=== PATIENT | male | born 1940 | race Caucasian/White ===

== ENCOUNTER 2018-12-03 20:44 | Inpatient (IN) ==
[2018-12-03] MEDS ORDERED: SODIUM CHLORIDE 0.9% 1000ML 500 ML IV ONE (21:10)
[2018-12-03] MEDS ORDERED: DiphenhydrAMINE HCL 50 MG/ML VIAL IV STA (21:10)
[2018-12-03] MEDS ORDERED: methylPREDNISolone 60 MG in SYRINGE 1 ML IV STA (21:10)
[2018-12-03] MEDS ORDERED: PROMETHAZINE HCL 6.25 MG in SODIUM CHLORIDE 0.9% 50 ML IV STA (21:10)
[2018-12-03] MEDS ORDERED: SODIUM CHLORIDE 0.9% 500 ML IV SCH (21:15)
[2018-12-03 21:23] LABS: Basophils # (auto) 0.03 K/uL (0-0.2); Basophils % (auto) 0.4 %; Eosinophils # (auto) 0.04 K/uL (0-0.5); Eosinophils % (auto) 0.5 %; Hematocrit (blood only) 37.5 % (42-52); Hemoglobin 12.9 g/dL (14.0-18.0); Immature Granulocytes # (auto) 0.01 K/uL (0.00-0.02); Immature Granulocytes % (auto) 0.1 %; Lymphocytes # (auto) 1.29 K/uL (1.2-3.4); Lymphocytes % (auto) 15.6 %; Mean Corpuscular Hgb Conc 34.4 g/dL (32-36); Mean Corpuscular Volume 96.9 fL (80-100); Monocytes # (auto) 0.48 K/uL (0.11-0.59); Monocytes % (auto) 5.8 %; Neutrophils # (auto) 6.41 K/uL (1.4-6.5); Neutrophils % (auto) 77.6 %; Platelet Count 252 K/uL (130-400); RDW Coefficient of Variation 12.8 % (11.5-14.5); RDW Standard Deviation 44.8 fL (36.4-46.3); Red Blood Count 3.87 M/uL (4.7-6.1); White Blood Count 8.26 K/uL (4.8-10.8)
[2018-12-03] MEDS ORDERED: methylPREDNISolone 125 MG/2 ML VIAL ONE (21:24)
[2018-12-03] MEDS ORDERED: PROMETHAZINE 12.5 MG/50.5 ML NSS IV ONE (21:24)
[2018-12-03 21:39] LABS: Albumin Level 4.2 gm/dl (3.4-5.0); BUN Creatinine Ratio 17.4 (10-20); Calcium 10.1 mg/dl (8.5-10.1); Creatinine Clr Calc Pharmacy 48.5 ml/min; Est GFR (African American) 67.8; Est GFR (Non-African American) 58.5; Magnesium 1.9 mg/dl (1.8-2.4); Potassium 4.1 mmol/L (3.5-5.1)
--- NOTE | 2018-12-03 21:44 | CT Scan Report ---
CT head/brain wo con CLINICAL HISTORY: 78 years-old Male with dizzy. Acute dizziness TECHNIQUE: Multiple axial CT images of the head were obtained without contrast. A dose lowering tech nique was utilized adhering to the principles of ALARA. CT DOSE: 537.48 mGy.cm COMPARISON: Head CT 10/31/2018 FINDINGS: No acute intracranial hemorrhage, midline shift, intracranial mass, hydrocephalus, territorial ischem ia or abnormal extra-axial collection. Age-related involutional changes with ex vacuo ventricular jacques guanakito. Patchy white matter hypodensities suggest chronic microvascular ischemic disease. Cerebral vascu lar calcifications are noted. The calvarium is intact. The paranasal sinuses, mastoid air cells, and middle ear cavities are clear . IMPRESSION: No acute intracranial abnormality. The above report was generated using voice recognition software. It may contain grammatical, syntax o r spelling errors. Electronically signed by: Bruce Enriquez M.D. 12/03/2018 9:43 PM
[2018-12-03 21:50] LABS: Albumin Globulin Ratio 0.9 (0.9-2); Bilirubin,Total 0.4 mg/dl (0.2-1); Globulin 4.4 gm/dl (2.5-4.0); Total Protein 8.6 gm/dl (6.4-8.2)
--- NOTE | 2018-12-03 22:09 | Emergency Department Note ---
Entered by Shaka Cramer acting as a scribe for Dago Potter MD History of Present Illness General Chief complaint: Vertigo Stated complaint: DIZZINESS, VOMITING Time Seen by Provider: 12/03/18 21:00 Source: patient History of Present Illness Provider complaint: Dizzy Onset (ago): hour(s) (This morning) Location: head Severity: similar to prior episodes Pain Consistency: + constant Relieved By: + other (Closing eyes) Exacerbated By: + movement Associated symptoms: + nausea/vomiting; no chest pain, no headaches and no shortness of breath The patient is an 78 year old male who presents to the Emergency Room with complaints of constant dizziness that started this morning when he woke up. The patient notes that his symptoms feels similar to his last bout of vertigo. However, he did mention that in the past the dizziness would be intermittent but today it has been constant. The patient reports his symptoms become worse with movement of his head but they improve when he closes his eyes. Shortly after the onset of his dizziness, the patient became nauseated and vomited a few times. Due to this history of vertigo the patient had Meclizine at home so he took 2 pills but they did not help relieve his symptoms. The patient denies any symptoms that are localized to one side as well as any headache, falls, chest pain, or shortness of breath. Home Medications Home Medications Medication Instructions Recorded Confirmed Type esomeprazole magnesium 40 mg PO DAILY 10/31/18 12/03/18 History loratadine 10 mg PO DAILY PRN 10/31/18 12/03/18 History acetaminophen [Tylenol Arthritis 650 mg PO QAM 12/03/18 12/03/18 History Pain] ferrous sulfate [iron] 325 mg PO QAM 12/03/18 12/03/18 History guaifenesin [Mucinex] 600 mg PO QAM 12/03/18 12/03/18 History Allergies Allergy/AdvReac Type Severity Reaction Status Date / Time No Known Allergies Allergy Unverified 12/03/18 23:01 Past Med/Surg History Medical History Vertigo (Acute 03/27/14) GERD (gastroesophageal reflux disease) (Acute) Diastolic CHF, chronic (Acute) Surgical History History of vasectomy (Resolved) Family History Other No significant past medical history Social History Feels Safe at Home: Yes Smoking Status: Former smoker Review of Systems See HPI for pertinent positives & negatives. and A total of 10 systems reviewed and were otherwise negative Physical Exam Vital Signs Vital Signs - 24 hr 12/03/18 20:57 12/03/18 22:00 Temperature 36.7 C Temperature Source Oral Sepsis Recent Fever Within 48 Hours No Sepsis Action Taken by Nursing No Action Required Pulse Rate 75 Pulse Rate [Apical] 81 Respiratory Rate 18 18 Respiratory Effort / Characteristics Non-Labored Spontaneous Respiratory Depth Normal Blood Pressure 165/83 H Blood Pressure [Left Arm] 162/90 H Blood Pressure Mean 110 Blood Pressure Mean [Left Arm] 114 Pulse Oximetry 96 96 Oxygen Delivery Method Room Air Room Air GENERAL: Patient is in no acute distress. HEENT: No acute trauma, normocephalic atraumatic, mucous membranes moist, no nasal congestion, no scleral icterus. Horizontal nystagmus noted especially when looking left. NECK: No stridor, no adenopathy, no meningismus, trachea is midline. LUNGS: Clear to auscultation bilaterally, no wheeze, no rhonchi, breath sounds equal. HEART: Very subtle systolic murmur noted. Regular rate and rhythm. ABDOMEN: Soft, nontender, bowel sounds positive, no hernias, no peritonitis. EXTREMITIES: No cyanosis or edema, full range of motion of all the joints without pain or difficulty, no signs for acute trauma. NEUROLOGIC: Oriented x 3, no acute motor or sensory deficits, no focal weakness. No cerebellar deficits, no pronator drift, no speech slur. Some extremity tremor noted. SKIN: No rash, no jaundice, no diaphoresis. Course 2101: Past medical records reviewed. The patient was evaluated in room A11B, and a complete history and physical examination were performed. 5: I reevaluated the patient and he is still having vertigo, however it is not as bad as before. 2320: The patient tried an ambulatory trial and failed. He will be hospitalized for further evaluation. 2338: I spoke to Dr. Bernstein - [facility] Hospitalist about the patient's case. He will be accepting the patient for further evaluation. Consultations Consultation #1: I spoke to Dr. Bernstein - [facility] Hospitalist about the rahel ent's case. He will be accepting the patient for further evaluation. Time: 23:38 Administered Medications Discontinued Medications Diphenhydramine HCl (Benadryl) 25 mg IV NOW STA Stop: 12/03/18 21:11 Last Admin: 12/03/18 21:37 Dose: 25 mg Documented by: [id number] Methylprednisolone 60 mg/ (Syringe) 1.96 mls @ 1.5 mls/min IV NOW STA Stop: 12/03/18 21:11 Last Admin: 12/03/18 21:37 Dose: 1.5 mls/min Documented by: [id number] Promethazine HCl 6.25 mg/ (Sodium Chloride) 50.25 mls @ 201 mls/hr IV NOW STA Stop: 12/03/18 21:24 Last Infusion: 12/03/18 22:41 Dose: 0 mls/hr Documented by: [id number] Admin: 12/03/18 21:37 Dose: 201 mls/hr Documented by: [id number] Sodium Chloride (Nss) 500 mls @ 999 mls/hr IV .Q31M NORBERTO Stop: 12/03/18 21:45 Last Infusion: 12/03/18 22:41 Dose: 0 mls/hr Documented by: [id number] Admin: 12/03/18 21:37 Dose: 999 mls/hr Documented by: [id number] Sodium Chloride (Nss 1000ml) 500 mls @ 999 mls/hr IV .Q31M ONE Stop: 12/03/18 21:40 Last Infusion: 12/03/18 22:41 Dose: 0 mls/hr Documented by: [id number] Admin: 12/03/18 21:37 Dose: 999 mls/hr Documented by: [id number] Lorazepam (Ativan) 0.5 mg in 1 mls @ 1 mls/min IV NOW STA Stop: 12/03/18 22:19 Last Admin: 12/03/18 22:25 Dose: 1 mls/min Documented by: [id number] Meclizine HCl (Antivert) 25 mg PO NOW STA Stop: 12/03/18 22:19 Last Admin: 12/03/18 22:25 Dose: 25 mg Documented by: [id number] Methylprednisolone (Solumedrol) Confirm Administered Dose 125 mg .ROUTE .STK-MED ONE Stop: 12/03/18 21:25 Last Admin: 12/03/18 21:35 Dose: Not Given Documented by: [id number] Promethazine HCl (Phenergan) Confirm Administered Dose 12.5 mg IV .STK-MED ONE Stop: 12/03/18 21:25 Last Admin: 12/03/18 21:35 Dose: Not Given Documented by: [id number] Medical Decision Making Differential Diagnosis Differential Diagnosis includes: Vertigo, stroke, electrolyte imbalance, dehydration, anemia, UTI, and dysrhythmia, amongst others. Medical Records Attestation: I reviewed the patient's medical records. Home Medications Current Medication List: was personally reviewed by me Laboratory Data Attestation: I reviewed the patient's lab results. Result diagrams: 12/03/18 21:14 12/03/18 21:14 Lab Results 12/03/18 12/03/18 12/03/18 Range/Units 21:14 21:14 22:45 WBC 8.26 (4.8-10.8) K/uL RBC 3.87 L (4.7-6.1) M/uL Hgb 12.9 L (14.0-18.0) g/dL Hct 37.5 L (42-52) % MCV 96.9 (80-100) fL MCH 33.3 (25-34) pg MCHC 34.4 (32-36) g/dL RDW Std Deviation 44.8 (36.4-46.3) fL RDW Coeff of Ally 12.8 (11.5-14.5) % Plt Count 252 (130-400) K/uL MPV 10.0 (7.4-10.4) fL Immature Gran % (Auto) 0.1 % Neut % (Auto) 77.6 % Lymph % (Auto) 15.6 % [place] % (Auto) 5.8 % Eos % (Auto) 0.5 % Baso % (Auto) 0.4 % Immature Gran # (Auto) 0.01 (0.00-0.02) K/uL Neut # (Auto) 6.41 (1.4-6.5) K/uL Lymph # (Auto) 1.29 (1.2-3.4) K/uL [place] # (Auto) 0.48 (0.11-0.59) K/uL Eos # (Auto) 0.04 (0-0.5) K/uL Baso # (Auto) 0.03 (0-0.2) K/uL Sodium 137 (136-145) mmol/L Potassium 4.1 (3.5-5.1) mmol/L Chloride 106 (98-107) mmol/L Carbon Dioxide 26 (21-32) mmol/L Anion Gap 6.0 (3-11) BUN 20 H (7-18) mg/dl Creatinine 1.17 (0.6-1.4) mg/dl Est Cr Clr Drug Dosing 48.5 ml/min Est GFR ( Amer) 67.8 Est GFR (Non-Af Amer) 58.5 BUN/Creatinine Ratio 17.4 (10-20) Glucose 113 H (70-99) mg/dl Calcium 10.1 (8.5-10.1) mg/dl Magnesium 1.9 (1.8-2.4) mg/dl Total Bilirubin 0.4 (0.2-1) mg/dl AST 22 (15-37) U/L ALT 25 (12-78) U/L Alkaline Phosphatase 85 (45-117) U/L Total Protein 8.6 H (6.4-8.2) gm/dl Albumin 4.2 (3.4-5.0) gm/dl Globulin 4.4 H (2.5-4.0) gm/dl Albumin/Globulin Ratio 0.9 (0.9-2) TSH 1.570 (0.300-4.500) uIu/ml Urine Color Yellow Urine Appearance Clear (Clear) Urine pH 5.5 (4.5-7.5) Ur Specific [place] 1.012 (1.000-1.030) Urine Protein 2+ H (Negative) Urine Glucose (UA) Negative (Negative) Urine Ketones Negative (Negative) Urine Blood Negative (Negative) Urine Nitrite Negative (Negative) Urine Bilirubin Negative (Negative) Urine Urobilinogen Negative (Negative) Ur Leukocyte Esterase Negative (Negative) Urine WBC (Auto) 0 (0-5) /hpf Urine RBC (Auto) 0-4 (0-4) /hpf U Hyaline Cast (Auto) 1-5 (0-5) /lpf U Epithel Cells (Auto) 10-20 H (0-5) /lpf Urine Bacteria (Auto) Negative (Negative) Imaging Data Radiologist's Impression: Radiology results as stated below per my review and the radiologist's interpretation: CT head/brain wo con CLINICAL HISTORY: 78 years-old Male with dizzy. Acute dizziness TECHNIQUE: Multiple axial CT images of the head were obtained without contrast. A dose lowering technique was utilized adhering to the principles of ALARA. CT DOSE: 537.48 mGy.cm COMPARISON: Head CT 10/31/2018 FINDINGS: No acute intracranial hemorrhage, midline shift, intracranial mass, hydrocephalus, territorial ischemia or abnormal extra-axial collection. Age- related involutional changes with ex vacuo ventricular megaly. Patchy white matter hypodensities suggest chronic microvascular ischemic disease. Cerebral vascular calcifications are noted. The calvarium is intact. The paranasal sinuses, mastoid air cells, and middle ear cavities are clear. IMPRESSION: No acute intracranial abnormality. The above report was generated using voice recognition software. It may contain grammatical, syntax or spelling errors. Electronically signed by: Bruce Enriquez M.D. 12/03/2018 9:43 PM ECG Data Attestation: I personally reviewed and interpreted this ECG as follows: Indication: other (Dizziness) Rate (beats per minute): 75 Rhythm: sinus rhythm Findings: + other (LVH noted), + PVC and + ST elevation (Subtle in the anterior leads) Comparison ECG Date: from (10/31/18) Change: no significant change Blood Pressure Blood Pressure Findings: Elevated blood pressure Blood Pressure Disposition: further management by hospitalist [facility] Narrative There is no leukocytosis. The patient does have a mild anemia, this is baseline looking back at previous testing. No significant electrolyte abnormality or kidney failure. No elevation to the liver enzymes. The patient appeared to be in a euthyroid state. Urinalysis does not show infection. Brain CT shows no acute bleed or mass-effect. EKG shows a sinus rhythm, no acute ischemia. On exam, the patient did have some horizontal nystagmus especially looking left. There were no focal neurologic deficits, no speech slur. The patient received IV Benadryl, IV Ativan, oral meclizine, IV Solu-Medrol, IV Phenergan and IV saline. He felt somewhat better but still dizzy. The patient was helped up, he could not ambulate on his own. He required 2 nurses to keep him steady. He was not safe for discharge. The patient presents with strokelike symptoms. I suspect he has vertigo as he has gone through this problem before. He does have some nystagmus which would indicate potential vertigo. He is not stable for discharge. I spoke to the sample case porter. The on-call hospitalist was consulted. Impression & Plan Stroke-like symptom, Dizziness, Weakness, Vomiting Discharge Plan Visit Data Chief Complaint: Vertigo Stated Complaint: DIZZINESS, VOMITING ED Provider: Dago Potter Discharge Problem: Stroke-like symptom, Dizziness, Weakness, Vomiting Patient Disposition: Being Evaluated by Hospitalist Forms Stand Alone Forms: My [facility] Prescriptions Prescriptions: No Action esomeprazole magnesium 40 mg capsule,delayed release(DR/EC) 40 mg PO DAILY RF: 0 loratadine 10 mg tablet 10 mg PO DAILY PRN (Reason: Allergy Symptoms) RF: 0 acetaminophen [Tylenol Arthritis Pain] 650 mg Tablet Extended Release 650 mg PO QAM RF: 0 ferrous sulfate [iron] 325 mg (65 mg iron) Tablet 325 mg PO QAM RF: 0 guaifenesin [Mucinex] 600 mg Tablet Extended Release 12hr 600 mg PO QAM RF: 0 Referrals Referrals: Jason aBy PA-C [Primary Care Provider] - Discharge Problem: Vomiting Qualifiers: Vomiting type: unspecified Vomiting Intractability: non-intractable Nausea pr esence: with nausea Qualified Code(s): R11.2 - Nausea with vomiting, unspecified The scribe's documentation has been prepared under my direction and personally reviewed by me in its entirety. I confirm that the note above accurately reflects all work, treatment, procedures, and medical decision making performed by me.
[2018-12-03] MEDS ORDERED: LORazepam 0.5 MG/1 ML VIAL IV STA (22:18)
[2018-12-03] MEDS ORDERED: MECLIZINE HCL 25 MG TAB PO STA (22:18)
[2018-12-03 22:57] LABS: Appearance Urine Clear (Clear); Bacteria Urine Automated Negative (Negative); Bilirubin Urine Negative (Negative); Blood Urine Negative (Negative); Color Urine Yellow; Glucose Urine UA Negative (Negative); Ketones Urine Negative (Negative); Leukocyte Esterase Urine Negative (Negative); Nitrite Urine Negative (Negative); Protein Urine 2+ (Negative); RBC Urine Automated 0-4 /hpf (0-4); Specific Gravity Urine 1.012 (1.000-1.030); Urobilinogen Urine Negative (Negative); WBC Urine Automated 0 /hpf (0-5); pH Urine 5.5 (4.5-7.5)
[2018-12-04] MEDS ORDERED: ACETAMINOPHEN 325 MG TAB PO PRN (02:34)
[2018-12-04] MEDS ORDERED: ALUMINUM/MAGNESIUM SUSP 30 ML UDC PO PRN (02:34)
[2018-12-04] MEDS ORDERED: ONDANSETRON INJ 2 MG/ML 2 ML VIAL IV PRN (02:34)
[2018-12-04] MEDS ORDERED: POLYETHYLENE (MIRALAX) 17 GM PACK PO PRN (02:34)
[2018-12-04] MEDS ORDERED: PHARMACIST DISCHARGE MED REC CONSULT PRN (02:34)
[2018-12-04] MEDS ORDERED: MAGNESIUM HYDROXIDE SUSP 30 ML UDC PO PRN (02:34)
[2018-12-04 03:04] LABS: Basophils # (auto) 0.02 K/uL (0-0.2); Basophils % (auto) 0.2 %; Hematocrit (blood only) 37.6 % (42-52); Hemoglobin 12.9 g/dL (14.0-18.0); Immature Granulocytes # (auto) 0.01 K/uL (0.00-0.02); Immature Granulocytes % (auto) 0.1 %; Lymphocytes # (auto) 0.84 K/uL (1.2-3.4); Lymphocytes % (auto) 9.2 %; Mean Corpuscular Hgb Conc 34.3 g/dL (32-36); Mean Corpuscular Volume 96.9 fL (80-100); Mean Platelet Volume 10.2 fL (7.4-10.4); Monocytes # (auto) 0.03 K/uL (0.11-0.59); Monocytes % (auto) 0.3 %; Neutrophils # (auto) 8.27 K/uL (1.4-6.5); Neutrophils % (auto) 90.2 %; Platelet Count 272 K/uL (130-400); RDW Coefficient of Variation 12.8 % (11.5-14.5); Red Blood Count 3.88 M/uL (4.7-6.1); White Blood Count 9.17 K/uL (4.8-10.8)
[2018-12-04 03:14] LABS: Prothrombin Time 10.7 Seconds (9.0-12.0)
[2018-12-04 03:23] LABS: BUN Creatinine Ratio 18.6 (10-20); Calcium 9.8 mg/dl (8.5-10.1); Creatinine Clr Calc Pharmacy 52.9 ml/min; Est GFR (African American) 73.1; Est GFR (Non-African American) 63.1; Potassium 4.1 mmol/L (3.5-5.1)
--- NOTE | 2018-12-04 05:43 | History & Physical Report ---
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 CTA head negative today. Order MRI of brain. Order complete echocardiogram. Monitor on telemetry for possible arrhythmia. Treat symptomatically with Zofran, famotidine and acetaminophen. Start aspirin 81 mg daily. Start atorvastatin 40 mg daily. Check a fasting lipid panel and hemoglobin A1c, and follow serial troponins. Consult neurology. Present on Admission?: Yes (2) Stroke-like symptom: See above Present on Admission?: Yes (3) Dizziness: See above Present on Admission?: Yes (4) Vomiting: See above Present on Admission?: Yes (5) Vertigo: See above Present on Admission?: Yes (6) Weakness: See above Present on Admission?: Yes (7) Diplopia: See above Present on Admission?: Yes (8) GERD (gastroesophageal reflux disease): Change Nexium to pantoprazole 40 mg daily Present on Admission?: Yes History of Present Illness Chief Complaint: The patient presented to the emergency department with complaint of acute onset after awakening this morning of severe room spinning when he was sitting upright, horizontal diplopia when he was looking to the left, and periodic intractable vomiting due to spinning severity. Primary Care Provider: Jason Bay PA-C The patient is a 78-year-old male with a past medical history including GERD, chronic diastolic CHF, allergy, iron deficiency and episodic vertigo, who presented to the emergency department with the above symptoms. His symptoms are persistent 12 hours later during evaluation in the ED, but have improved somewhat. He has not had any focal deficits in arms or legs. He reports that in the past when he has had these symptoms, they have resolved in minutes, and have not been accompanied by diplopia. He reports no different activities in the preceding days, and denies any recent travels or sick exposures. He was seen in the emergency department on 10/31/2018 due to similar symptoms, and had a CTA of the head and neck which showed moderate narrowing of the right vertebral artery. Allergies Allergy/AdvReac Type Severity Reaction Status Date / Time No Known Allergies Allergy Unverified 12/03/18 23:01 Home Medications Home Medications Medication Instructions Recorded Confirmed Type esomeprazole magnesium 40 mg PO DAILY 10/31/18 12/03/18 History loratadine 10 mg PO DAILY PRN 10/31/18 12/03/18 History acetaminophen [Tylenol Arthritis 650 mg PO QAM 12/03/18 12/03/18 History Pain] ferrous sulfate [iron] 325 mg PO QAM 12/03/18 12/03/18 History guaifenesin [Mucinex] 600 mg PO QAM 12/03/18 12/03/18 History Past Med/Surg History Medical History Vertigo (Acute 03/27/14) GERD (gastroesophageal reflux disease) (Acute) Diastolic CHF, chronic (Acute) Surgical History History of vasectomy (Resolved) Family History Other No significant past medical history Social History Preferred Language: Slovak Communication Ability: Effective Chronic Disease Manager Required: No Beliefs That Will Affect Care: None Current Living Situation: Spouse Other Information That Helps Us Care for You: No Feels Safe at Home: Yes Safety Concerns: Feels Safe At This Time Smoking Status: Former smoker Hx Alcohol Use: No Hx Substance Use: No Review of Systems Review of Systems: The patient denies chest pain, palpitations, shortness of breath, dyspnea on exertion, cough, lower extremity swelling, sore throat, fevers, chills, sweats, diarrhea , constipation, abdominal pain, pelvic pain, blood in urine or stool, dysuria, urinary frequency or urgency, memory loss, loss of consciousness, rash, abnormal bruising or bleeding, focal or generalized weakness, numbness or tingling in arms or legs, generalized arthralgias or myalgias, back or neck pain, or night sweats. The review of systems is otherwise negative other than for that already noted above, and at least 10 systems have been reviewed. Physical Exam Physical Exam: The patient is awake, alert and oriented 3, well developed and well nourished, normocephalic and atraumatic, lying in bed and in no acute distress. HEENT--PERRL, EOMI, mucous membranes and oropharynx dry. Neck--supple. No JVD. No bruits. Thyroid normal, trachea midline, no adenopathy. Heart--normal S1 and S2. No murmurs, rubs or gallops. Lungs--clear bilaterally, no respiratory distress, no accessory muscle use. Abdomen--normal bowel sounds and soft. Nontender. Nondistended, no hernias or masses, no organomegaly. Extremities--no cyanosis or clubbing. No edema. There are good distal pulses b/l. Dermatologic--normal skin turgor, normal color, no abnormal lymph nodes, no rash. Neurologic--cranial nerves II through XII grossly intact. Rheumatologic--normal range of motion. Psychiatric--normal affect. Results & Data Vital Signs (Past 12 Hours) Vital Signs Temp Pulse Pulse Resp BP BP Pulse Ox 12/04/18 02:25 98.1 F 86 20 182/98 H 96 12/04/18 02:06 83 19 162/91 H 95 12/04/18 01:27 73 19 153/108 H 94 12/03/18 22:00 81 18 162/90 H 96 12/03/18 20:57 98.1 F 75 18 165/83 H 96 Laboratory Results Laboratory Results WBC 9.17 K/uL (4.8-10.8) 12/04/18 02:41 RBC 3.88 M/uL (4.7-6.1) L 12/04/18 02:41 Hgb 12.9 g/dL (14.0-18.0) L 12/04/18 02:41 Hct 37.6 % (42-52) L 12/04/18 02:41 MCV 96.9 fL (80-100) 12/04/18 02:41 MCH 33.2 pg (25-34) 12/04/18 02:41 MCHC 34.3 g/dL (32-36) 12/04/18 02:41 RDW Std Deviation 45.0 fL (36.4-46.3) 12/04/18 02:41 RDW Coeff of Ally 12.8 % (11.5-14.5) 12/04/18 02:41 Plt Count 272 K/uL (130-400) 12/04/18 02:41 MPV 10.2 fL (7.4-10.4) 12/04/18 02:41 Immature Gran % (Auto) 0.1 % 12/04/18 02:41 Neut % (Auto) 90.2 % 12/04/18 02:41 Lymph % (Auto) 9.2 % 12/04/18 02:41 [place] % (Auto) 0.3 % 12/04/18 02:41 Eos % (Auto) 0.0 % 12/04/18 02:41 Baso % (Auto) 0.2 % 12/04/18 02:41 Immature Gran # (Auto) 0.01 K/uL (0.00-0.02) 12/04/18 02:41 Neut # (Auto) 8.27 K/uL (1.4-6.5) H 12/04/18 02:41 Lymph # (Auto) 0.84 K/uL (1.2-3.4) L 12/04/18 02:41 [place] # (Auto) 0.03 K/uL (0.11-0.59) L 12/04/18 02:41 Eos # (Auto) 0.00 K/uL (0-0.5) 12/04/18 02:41 Baso # (Auto) 0.02 K/uL (0-0.2) 12/04/18 02:41 PT 10.7 Seconds (9.0-12.0) 12/04/18 02:41 INR 1.0 (0.9-1.1) 12/04/18 02:41 Sodium 140 mmol/L (136-145) 12/04/18 02:41 Potassium 4.1 mmol/L (3.5-5.1) 12/04/18 02:41 Chloride 108 mmol/L (98-107) H 12/04/18 02:41 Carbon Dioxide 23 mmol/L (21-32) 12/04/18 02:41 Anion Gap 9.0 (3-11) 12/04/18 02:41 BUN 21 mg/dl (7-18) H 12/04/18 02:41 Creatinine 1.10 mg/dl (0.6-1.4) 12/04/18 02:41 Est Cr Clr Drug Dosing 52.9 ml/min 12/04/18 02:41 Est GFR ( Amer) 73.1 12/04/18 02:41 Est GFR (Non-Af Amer) 63.1 12/04/18 02:41 BUN/Creatinine Ratio 18.6 (10-20) 12/04/18 02:41 Glucose 132 mg/dl (70-99) H 12/04/18 02:41 Calcium 9.8 mg/dl (8.5-10.1) 12/04/18 02:41 Magnesium 1.9 mg/dl (1.8-2.4) 12/03/18 21:14 Total Bilirubin 0.4 mg/dl (0.2-1) 12/03/18 21:14 AST 22 U/L (15-37) 12/03/18 21:14 ALT 25 U/L (12-78) 12/03/18 21:14 Alkaline Phosphatase 85 U/L (45-117) 12/03/18 21:14 Troponin I < 0.015 ng/ml (0-0.045) 12/04/18 02:41 Total Protein 8.6 gm/dl (6.4-8.2) H 12/03/18 21:14 Albumin 4.2 gm/dl (3.4-5.0) 12/03/18 21:14 Globulin 4.4 gm/dl (2.5-4.0) H 12/03/18 21:14 Albumin/Globulin Ratio 0.9 (0.9-2) 12/03/18 21:14 Triglycerides 82 mg/dl (0-150) 12/04/18 02:41 Cholesterol 196 mg/dl (0-200) 12/04/18 02:41 LDL Cholesterol, Calc 135 mg/dl 12/04/18 02:41 VLDL Cholesterol, Calc 16 mg/dl 12/04/18 02:41 HDL Cholesterol 45 mg/dl 12/04/18 02:41 Cholesterol/HDL Ratio 4 12/04/18 02:41 TSH 1.570 uIu/ml (0.300-4.500) 12/03/18 21:14 Urine Color Yellow 12/03/18 22:45 Urine Appearance Clear (Clear) 12/03/18 22:45 Urine pH 5.5 (4.5-7.5) 12/03/18 22:45 Ur Specific [place] 1.012 (1.000-1.030) 12/03/18 22:45 Urine Protein 2+ (Negative) H 12/03/18 22:45 Urine Glucose (UA) Negative (Negative) 12/03/18 22:45 Urine Ketones Negative (Negative) 12/03/18 22:45 Urine Blood Negative (Negative) 12/03/18 22:45 Urine Nitrite Negative (Negative) 12/03/18 22:45 Urine Bilirubin Negative (Negative) 12/03/18 22:45 Urine Urobilinogen Negative (Negative) 12/03/18 22:45 Ur Leukocyte Esterase Negative (Negative) 12/03/18 22:45 Urine WBC (Auto) 0 /hpf (0-5) 12/03/18 22:45 Urine RBC (Auto) 0-4 /hpf (0-4) 12/03/18 22:45 U Hyaline Cast (Auto) 1-5 /lpf (0-5) 12/03/18 22:45 U Epithel Cells (Auto) 10-20 /lpf (0-5) H 12/03/18 22:45 Urine Bacteria (Auto) Negative (Negative) 12/03/18 22:45 Diagnostic Findings [place], [place] [phone] CT Scan Report Patient: MONIK THORPE Date: 12/03/18 MR#: [id number]: [address] [facility] Acct ID:[id number]: Date: 1940[facility] Zip: [place] [address] Age: 78Location: ED Sex: M Room/Bed: Att Phy: Diagnosis: DIZZINESS, VOMITING Alicia Phy: Jason Bay-CService Date: 12/03/18 Fam Phy: Interpreting Phy: Geovany Enriquez Admit Phy: Ordering Phy: Dago Potter M.D. cc: ~ CT head/brain wo con CLINICAL HISTORY: 78 years-old Male with dizzy. Acute dizziness TECHNIQUE: Multiple axial CT images of the head were obtained without contrast. A dose lowering technique was utilized adhering to the principles of ALARA. CT DOSE: 537.48 mGy.cm COMPARISON: Head CT 10/31/2018 FINDINGS: No acute intracranial hemorrhage, midline shift, intracranial mass, hy drocephalus, territorial ischemia or abnormal extra-axial collection. Age- related involutional changes with ex vacuo ventricular megaly. Patchy white matter hypodensities suggest chronic microvascular ischemic disease. Cerebral vascular calcifications are noted. The calvarium is intact. The paranasal sinuses, mastoid air cells, and middle ear cavities are clear. IMPRESSION: No acute intracranial abnormality. The above report was generated using voice recognition software. It may contain grammatical, syntax or spelling errors. Electronically signed by: Bruce Enriquez M.D. 12/03/2018 9:43 PM Dictated: 12/03/182139 Transcribed: 12/03/182139 [place], [place] [phone] CT Scan Report Patient: MONIK THORPE Date: 10/31/18 MR#: [id number]: [address] [facility] Acct ID:[id number]: Date: 1940City Zip: [place] [address] Age: 78Location: ED Sex: M Room/Bed: Att Phy: Diagnosis: SYNCOPE Alicia Phy: Jason Bay-CService Date: 10/31/18 Fam Phy: Jason Bay-CInterpreting Phy: Chema Bruno MD Admit Phy: Ordering Phy: Ruben Lin M.D. cc: ~ HEAD & NECK CTA HISTORY: syncope TECHNIQUE: Multiaxial CT images of the head were performed following the intravenous administration of contrast to evaluate the major cerebral vessels. Multiaxial CT images of the neck were also performed following the intravenous administration of contrast to evaluate the major cervical vessels. Maximum intensity projection images were also obtained. A dose lowering technique was utilized adhering to the principles of ALARA. COMPARISON: Head and neck MRA 03/27/2014. FINDINGS: There is no mass, hematoma, midline shift, or acute infarct. Visualized intracranial internal carotid arteries, distal vertebral arteries, and basilar artery are widely patent. There is no significant stenosis, occlusion, or aneurysm seen within the bilateral ACAs, MCAs, or form drafter. The major dural venous sinuses are widely patent. The aortic arch and proximal great vessels are widely patent. There is no significant stenosis, occlusion, or dissection identified within the bilateral common carotid and internal carotid arteries. Moderate focal narrowing at the origin of the right vertebral artery. The left vertebral artery is widely patent. Mild atherosclerotic plaque within the right carotid bulb. No evidence for vertebral artery dissection. IMPRESSION: 1. No significant stenosis, occlusion, or aneurysm within the [place]. 2. No significant stenosis, occlusion, or dissection identified within the carotid or left vertebral arteries. 3. Moderate focal narrowing at the origin of the right vertebral artery. Electronically signed by: Chema Bruno M.D. 10/31/2018 9:39 PM Dictated: 10/31/182131 Transcribed: 10/31/182131 Code Status & VTE Plan Code Status Full code VTE Prophylaxis Plan VTE Prophylaxis will be ordered: Yes PG Care Time/CCT Total # of Minutes Spent Total Time Spent with Patient: Total time spent is greater than 50% in coordination of care (as documented) at patient's floor/unit and/or counseling patient: (1) Vomiting Nausea presence: with nausea Vomiting Intractability: non-intractable Vomiting type: unspecified Qualified Code(s): R11.2 - Nausea with vomiting, unspecified
--- NOTE | 2018-12-04 08:10 | Magnetic Resonance Report ---
MR brain wo con HISTORY: 78 years-old Male diplopia, stroke-like symptoms, dizziness acute dizziness with strokelike symptoms and double vision COMPARISON: Head CT 12/03/2018, brain MRI 03/27/2014 TECHNIQUE: Multiplanar multisequence MRI of the brain was obtained without the use of IV contrast. FINDINGS: Developmental Training Counselor localizer images demonstrate no gross extracranial abnormality. No restricted diffusion to sugg est acute or subacute infarction. Midline structures including the corpus callosum, brainstem, optic chiasm, pituitary and pineal glands appear unremarkable on the sagittal T1 series. No cerebellar tons illar herniation. Degenerative changes of the cervical spine. Age-related involutional changes with ex vacuo ventriculomegaly. Moderate T2/FLAIR white matter hyper intensities suggest chronic microvascular ischemic disease. No acute intracranial hemorrhage, midline shift, abnormal extra axial collection, hydrocephalus or intracranial mass. Major flow voids at the level of the skull base appear patent. Mild mucosal thickening of the ethmoid and maxillary sinuses. Prior bilateral cataract repair. Skull and soft tissues are within normal limits. IMPRESSION: 1. No acute intracranial abnormality, specifically no acute or subacute infarction. 2. Age-related involutional changes with ex vacuo ventriculomegaly. 3. Suggestion of moderate chronic microvascular ischemic changes. The above report was generated using voice recognition software. It may contain grammatical, syntax o r spelling errors. Electronically signed by: Bruce Enriquez M.D. 12/04/2018 8:09 AM
[2018-12-04] MEDS: PANTOprazole 40 MG TAB PO SCH (08:15)
[2018-12-04] MEDS: FERROUS SULFATE 325 MG TAB PO SCH (08:15)
[2018-12-04] MEDS: ACETAMINOPHEN 325 MG TAB PO SCH (08:15)
[2018-12-04] MEDS: guaiFENesin 600 MG TABCR PO SCH (08:15)
[2018-12-04] MEDS ORDERED: ATORVASTATIN 40 MG TAB PO SCH (09:00)
[2018-12-04] MEDS ORDERED: ASPIRIN 81 MG ECTAB PO SCH (09:00)
--- NOTE | 2018-12-04 10:28 | Neurology Consultation ---
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 He is probably experiencing a relapse of this condition. There is no evidence for acute or subacute stroke on his recently completed brain MRI. The recently identified moderate stenosis of the right vertebral artery is not likely clinically significant. He may continue with meclizine as needed. Physical therapy/Shaina maneuvers would also likely be helpful. I see that daily low-dose aspirin and atorvastatin have been started. I do not object to either of these medications as his imaging does reveal evidence of chronic small vessel ischemic disease as well as a moderate stenosis of the right vertebral artery as above. Case discussed with Dr. Guillory, attending hospitalist. No further immediate recommendations. History of Present Illness Reason for Consultation: Strokelike symptoms Requesting Physician: Hesham Bernstein Attending Physician: Ortiz Guillory MD History of Present Illness The patient is an 78-year-old male with a chief complaint of vertigo, spinning sensation, that he noted upon awakening yesterday morning. The perception increases with movement and is associated with nausea as well as a few episodes of vomiting. His symptoms were persistent and he continues to display difficulty with ambulation during his assessment in the emergency department and he was admitted for further evaluation for possible vertebrobasilar insufficiency. Past medical history is notable for benign positional paroxysmal vertigo for which she has a prescription for meclizine. The patient does admit that his current symptoms are very similar to his BPPV but had been more persistent and associated with more significant ambulatory dysfunction which is why he sought assessment in the emergency department. He denies any hearing loss, tinnitus, or ear fullness. He denies any diplopia, dysarthria, focal weakness, sensory loss, or headache. He reports that his symptoms are significantly improved this morning although he continues to have a vague sense of dizziness, perhaps slight vertigo, when lying completely flat in bed, more so with turning his head to the left. He also continues to notice a slight tendency to list to the right with ambulation. Additional details as below. Allergies Allergy/AdvReac Type Severity Reaction Status Date / Time No Known Allergies Allergy Unverified 12/03/18 23:01 Home Medications Home Medications Medication Instructions Recorded Confirmed Type esomeprazole magnesium 40 mg PO DAILY 10/31/18 12/03/18 History loratadine 10 mg PO DAILY PRN 10/31/18 12/03/18 History acetaminophen [Tylenol Arthritis 650 mg PO QAM 12/03/18 12/03/18 History Pain] ferrous sulfate [iron] 325 mg PO QAM 12/03/18 12/03/18 History guaifenesin [Mucinex] 600 mg PO QAM 12/03/18 12/03/18 History Patient History Medical History Vertigo (Acute 03/27/14) GERD (gastroesophageal reflux disease) (Acute) Diastolic CHF, chronic (Acute) Surgical History History of vasectomy (Resolved) Family History Other No significant past medical history Social History Preferred Language: Albanian Communication Ability: Effective Radiologic Therapist Required: No Beliefs That Will Affect Care: None marital status: Current Living Situation: Spouse Other Information That Helps Us Care for You: No Feels Safe at Home: Yes Safety Concerns: Feels Safe At This Time Smoking Status: Former smoker Hx Alcohol Use: No Hx Substance Use: No Review of Systems Constitutional: no fever and no chills Eyes: no blind spots and no diplopia Ear, Nose, Mouth, Throat: + hearing loss (Chronic bilateral hearing loss.); no tinnitus Respiratory: no cough and no dyspnea Cardiovascular: no chest pain and no palpitations Gastrointestinal: as per Subjective / HPI, + nausea and + vomiting Genitourinary: no dysuria and no urinary incontinence Musculoskeletal: no neck pain and no myalgia Integumentary: no rash and no lesions Neurologic: as per Subjective / HPI, + unsteadiness and + dizziness; no localized weakness, no loss of sensation and no headache(s) Psychiatric: no depression and no anxiety Hematologic / Lymphatic: no easy bleeding and no easy bruising Physical Exam Physical Exam: The patient is a well-developed, well-nourished elderly male. He is alert and fully oriented. Recent and remote memory intact. Attention and concentration normal. Patient exhibits a normal spontaneous speech pattern as well as an age-appropriate fund of knowledge. Visual lopez full to confrontation. Visual acuity normal. Pupils equal round reactive to light and accommodation. Eye movements normal. There are a few beats of gaze evoked nystagmus to the left. Facial sensation intact. There is no facial droop or weakness. Hearing diminished to finger rub bilaterally. Palate elevates to midline. Shoulder shrug intact. Tongue protrudes to midline. Sensation intact to all modalities in all 4 limbs. Deep tendon reflexes intact and symmetrical. Plantar responses downgoing bilaterally. There is no dysdiadochokinesia or dysmetria [id number] or [id number] bilaterally. Ophthalmoscopic examination reveals normal-appearing optic disks and posterior segments. No papilledema or hemorrhages. Carotid pulses normal bilaterally, no bruits to auscultation. Gait is somewhat unsteady appearing with a slight tendency to list to the right. Patient exhibits normal muscle strength and tone for all 4 limbs proximally and distally. No atrophy. No abnormal movements. [place]- Hallpike positive with head turn to the left. Results & Data Vital Signs (Past 12 Hours) Vital Signs Temp Pulse Pulse Resp BP BP Pulse Ox 12/04/18 07:36 36.8 C 87 16 168/97 H 93 12/04/18 07:09 36.8 C 97 H 18 165/95 H 94 12/04/18 02:25 36.7 C 86 20 182/98 H 96 12/04/18 02:06 83 19 162/91 H 95 12/04/18 01:27 73 19 153/108 H 94 Laboratory Results WBC 9.17, hemoglobin 12.9, hematocrit 37.6, platelet count 272, sodium 140, potassium 4.1, BUN 21, creatinine 1.10, glucose 132, calcium 9.8, magnesium 1.9, transaminases normal, troponin less than 0.015, triglycerides 82, cholesterol 196, LDL 135, VLDL 16, HDL 45, TSH 1.[address] of the head completed yesterday was negative for hemorrhage or acute process. There is generalized atrophy. I reviewed the images as well as radiology interpretation of this test. An MRI of the brain completed today was negative for acute or subacute stroke. There is age-related generalized atrophy with associated ex vacuo ventriculomegaly. There is chronic microvascular ischemic change. I reviewed the images as well as radiology interpretation of this test. CT angiography of the head and neck completed October 31, 2018 in the context of an isolated syncopal episode revealed moderate focal narrowing at the origin of the right vertebral artery and was otherwise unremarkable.
[2018-12-04] MEDS ORDERED: LORATADINE 10 MG TAB PO PRN (13:50)
--- NOTE | 2018-12-04 14:46 | History & Physical Bridge Note ---
Date of Service December 04, 2018 History & Physical Bridge Note 78-year-old male with a history of BPPV who presents with worsening of BPPV on the left side. Initially concern for stroke; however, MRI brain reveals no stroke, and neurology also believes this is not a CVA. Attempted bedside Shaina maneuver with the patient, but it did not resolve his dizziness. I then tried to walk the patient, and even with assistance from the RN, he almost fell multiple times. I will await official PT/OT evaluation and recommendations; however, he may need temporary rehab placement to improve his gait.
[2018-12-04] MEDS: MECLIZINE HCL 25 MG TAB PO PRN (17:50)
[2018-12-05 05:59] LABS: Estimated Average Glucose 114 mg/dl; Hemoglobin A1C 5.6 % (4.5-5.6)
[2018-12-05 06:01] LABS: Basophils # (auto) 0.05 K/uL (0-0.2); Basophils % (auto) 0.5 %; Eosinophils # (auto) 0.17 K/uL (0-0.5); Eosinophils % (auto) 1.7 %; Hematocrit (blood only) 34.8 % (42-52); Hemoglobin 11.8 g/dL (14.0-18.0); Immature Granulocytes # (auto) 0.02 K/uL (0.00-0.02); Immature Granulocytes % (auto) 0.2 %; Lymphocytes # (auto) 3.62 K/uL (1.2-3.4); Lymphocytes % (auto) 35.6 %; Mean Corpuscular Hgb Conc 33.9 g/dL (32-36); Mean Corpuscular Volume 97.8 fL (80-100); Mean Platelet Volume 9.9 fL (7.4-10.4); Monocytes # (auto) 1.04 K/uL (0.11-0.59); Monocytes % (auto) 10.2 %; Neutrophils # (auto) 5.28 K/uL (1.4-6.5); Neutrophils % (auto) 51.8 %; Platelet Count 264 K/uL (130-400); RDW Coefficient of Variation 12.9 % (11.5-14.5); RDW Standard Deviation 46.1 fL (36.4-46.3); Red Blood Count 3.56 M/uL (4.7-6.1); White Blood Count 10.18 K/uL (4.8-10.8)
[2018-12-05 06:10] LABS: Prothrombin Time 10.6 Seconds (9.0-12.0)
[2018-12-05] MEDS: MECLIZINE HCL 25 MG TAB PO PRN (06:16)
[2018-12-05 06:34] LABS: Calcium 9.2 mg/dl (8.5-10.1); Creatinine Clr Calc Pharmacy 42.5 ml/min; Est GFR (African American) 56.1; Est GFR (Non-African American) 48.4; Potassium 3.8 mmol/L (3.5-5.1)
[2018-12-05] MEDS: PANTOprazole 40 MG TAB PO SCH (08:01)
[2018-12-05] MEDS: guaiFENesin 600 MG TABCR PO SCH (08:01)
[2018-12-05] MEDS: FERROUS SULFATE 325 MG TAB PO SCH (08:01)
[2018-12-05] MEDS: ACETAMINOPHEN 325 MG TAB PO SCH (08:02)
--- NOTE | 2018-12-05 10:31 | Neurology Progress Note ---
Date of Service December 05, 2018 Assessment & Plan (1) BPPV (benign paroxysmal positional vertigo): This patient presented December 03 with acute onset vertigo and double vision consistent with benign paroxysmal positional vertigo. He is markedly improved today with no significant nystagmus or symptoms even with movement. He has no hearing loss, tinnitus, or ear pain but does have some balance issues, falling to the right and backwards. Dr. Sanders did a [place]-Hallpike maneuver and localized his lesion to the left posterior semicircular canal. MRI of the brain showed no acute stroke but did show moderate generalized atrophy and small vessel ischemic change of an old nature. CT angiography of the head and neck were remarkable only for some stenosis at the origin of the right vertebral (which I do not believe has anything to do with his current symptoms). Meclizine helps. 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 There is moderate old small vessel ischemic disease present and generalized atrophy, consistent with aging. He has little in the way of significant stroke risk factors other than age and being a former smoker. He has no hypertension, diabetes, or significant dyslipidemia. Recommendations: 1. Continue 81 milligram aspirin and atorvastatin. He is not a high dose s tatin candidate at this time. 2. Control blood pressure, aiming for a mean arterial pressure of 95-100. 3. Continue meclizine 25 milligrams up to 3 times a day as needed for vertiginous symptoms. There is no need for additional medication as his vertigo is markedly improved. 4. Increase activity as able and continue with physical therapy and gait training. 5. Otherwise, I have no specific additional neurologic testing or treatment recommendations to make at this time. Otherwise, follow up with Dr. Sanders as an outpatient. Overall, I spent a total of 45 minutes with this case including review of records, review of MRI films, direct evaluation the patient at bedside, and discussion of the case with the patient at bedside and Dr. Saucedo, including differential diagnosis and treatment options. Subjective The patient believes he is approximately 90 percent improved, compared to admission. When he arrived to the emergency room this weekend he had intermittent double vision looking to the right and significant vertigo with turning his head particularly to the left. His balance was poor and he could not ambulate. He had nausea and vomiting. This morning, he has no nausea or vomiting and very little in the way of vertigo or dizziness. He may have a little bit with turning his head to the left but when he is sitting still in any position he has no dizziness. He denies headaches, speech problems, confusion, weakness, or numbness. Blood pressure this morning was 148/81. MRI of the brain showed moderate generalized atrophy and mild to moderate old small vessel ischemic changes diffusely of a nonspecific nature. I reviewed these films. CT angiography of the head neck were unremarkable except for some stenosis at t he origin of the right vertebral artery. He is taking meclizine and this helps. He has mild anemia on CBC and Chem profile is largely unremarkable although his BUN is elevated. Fasting lipid profile revealed total cholesterol of 196, LDL 135, triglycerides 82, HDL 45. Physical Exam Physical Exam: He is awake and alert. Speech is without any specific aphasia or dysarthria. Mood and affect seem normal appropriate. Thought processes are intact to conversation. Extraocular eye muscles are intact without nystagmus. Movement of his eyes and head to the left or to the right produced no dizziness or vertigo and he had no additional nystagmus. There is no facial droop. Stance with feet together is difficult for him eyes open or close and he tends to fall backwards or to the right. Gait is narrow based otherwise. With outstretched arms there is no drift and he has no ataxia with [id number] testing. There is no resting postural or action tremor. Motor strength is 5/5 diffusely in the limbs bilaterally both proximally and distally. Results & Data Vital Signs (Past 12 Hours) Vital Signs Temp Pulse Resp BP Pulse Ox 12/05/18 07:21 36.5 C 67 20 146/81 H 96 12/04/18 23:12 36.8 C 75 19 142/88 H 95 PG Care Time/CCT Total # of Minutes Spent Total Time Spent with Patient: 45 minutes
--- NOTE | 2018-12-05 12:00 | Discharge Summary ---
Date of Service December 05, 2018 Admission HPI Per Admitting Provider The patient is a 78-year-old male with a past medical history including GERD, chronic diastolic CHF, allergy, iron deficiency and episodic vertigo, who presented to the emergency department with the above symptoms. His symptoms are persistent 12 hours later during evaluation in the ED, but have improved somewhat. He has not had any focal deficits in arms or legs. He reports that in the past when he has had these symptoms, they have resolved in minutes, and have not been accompanied by diplopia. He reports no different activities in the preceding days, and denies any recent travels or sick exposures. He was seen in the emergency department on 10/31/2018 due to similar symptoms, and had a CTA of the head and neck which showed moderate narrowing of the right vertebral artery. Principal Diagnosis BPPV Discharge Exam Constitutional WD/WN, vitals as above Eyes PERRL, conjunctivae normal, anicteric sclerae EOM intact bilaterally ENMT external ear and nose normal, oropharynx normal Neck trachea midline, no thyromegaly Respiratory normal respiratory effort, lungs clear to auscultation Cardiovascular RRR, no murmur, no edema Gastrointestinal (Abdomen) normal bowel sounds, soft, nontender, no hepatosplenomegaly Musculoskeletal Extremities: extremities normal to inspection; no cyanosis and no clubbing Skin no rashes, warm and dry Neurologic CN's II-XI intact bilaterally, moves all extremities and awake; no focal motor deficits Psychiatric A+Ox3, euthymic affect Discharge Data Allergies Allergy/AdvReac Type Severity Reaction Status Date / Time No Known Allergies Allergy Unverified 12/03/18 23:01 Consultations 12/03/18 23:35 ED Decision to Admit Stat 12/04/18 02:34 Consult Case Management - Discharge Planning Routine Consult Case Management - Discharge Planning Routine Consult Neurology Routine Ordered Studies 12/03/18 21:10 CT head/brain wo con Stat 12/04/18 02:38 MR brain wo con Urgent Hospital Course (1) Vertigo: Presented with vertigo and N/V--> now 90% improved, able to ambulate. Stroke workup negative. 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 Started atorvastatin 20 mg daily. - fasting lipid panel with LDL 135, TChol 196 -follow LFTs, lipid panel in 4-6 weeks, would not want to drop TCHol<100 (3) Vomiting: resolved, secondary to BPPV (4) Weakness: generalized, now resolved (5) Diplopia: now resolved (6) GERD (gastroesophageal reflux disease): stable -continue PPI Dispo-stable for dc to home Total Time Total Time Spent Total Time Spent (In Minutes): >30 min Total Time Includes: Examination of the Patient, Discharge Planning, Medication Reconciliation and Communication With Other Providers (Neurology) Discharge Plan Discharge Items Patient Disposition: Home - Self-Care Reason For Visit: DIPLOPIA, VERTIGO, STROKE-LIKE SYMPTOMS Discharge Diagnosis: Vertigo Condition: Good Discharge Goals: Decrease discomfort, Diagnostic testing, Improve disease control, Improve function, Learn about illness and Therapeutic intervention Activity: As commented below Lifting: Gradually increase as tolerated Bathing: No limitations Exercise/Sports: Gradually increase as tolerated Driving/Machine Use: Resume 3 days after discharge Driving/Machine Use Comment: if vertigo resolved Non-emergency contact: Primary Care Provider and Neurologist Call non-emergency contact if: you have any medication questions and your symptoms worsen Follow-up/Referrals: Jason Bay PA-C [Primary Care Provider] - Diet: Heart Healthy Addtl Provider Instructions: You were admitted with vertigo and had a complete work up which ruled OUT stroke as the cause of your symptoms. The Neurologist evaluated you and thought you had benign vertigo. This can be treated with physical therapy therapy exercises and meclizine as needed. You were found to have plaque buildup in an artery that supplies blood to your brain. You were started on a baby aspirin and a cholesterol pill for prevention of stroke due to this plaque buildup. Please follow up with your PCP within 1-2 weeks, and with Neurology within 1-2 months as scheduled for you. Prescriptions: New meclizine 25 mg Tablet 25 mg PO TID PRN (Reason: dizziness) Qty: 20 RF: 0 aspirin [Aspirin Low Dose] 81 mg tablet,delayed release (DR/EC) 81 mg PO DAILY Qty: 30 RF: 0 atorvastatin 20 mg tablet 20 mg PO HS Qty: 30 RF: 0 Continued esomeprazole magnesium 40 mg capsule,delayed release(DR/EC) 40 mg PO DAILY RF: 0 loratadine 10 mg tablet 10 mg PO DAILY PRN (Reason: Allergy Symptoms) RF: 0 acetaminophen [Tylenol Arthritis Pain] 650 mg Tablet Extended Release 650 mg PO QAM RF: 0 ferrous sulfate [iron] 325 mg (65 mg iron) Tablet 325 mg PO QAM RF: 0 guaifenesin [Mucinex] 600 mg Tablet Extended Release 12hr 600 mg PO QAM RF: 0 Stand-Alone Forms: [facility] Discharge Orders: Discharge Order (Routine); Ordered 12/05/18 Ordered By: Shy Saucedo Admission Data Admit Date/Time: 12/04/18 01:44 Attending Provider: Shy Saucedo Admit Provider: Hesham Bernstein Primary Care Provider: Jason Bay Other Providers: Ortiz Guillory ; Hesham Bernstein ; Luca Sanders Service: Medical Other Pending Studies at Discharge: No
== END 2018-12-05 13:00 | disposition home or self-care (01) | DRG 149 ==
LOC: ED 20:44 → 2S 12-04 01:44 → SUATTDRO 12-04 01:44 → 2S 12-04 02:06 → 4W 12-04 09:59
DX: Z87.891 Personal history of nicotine dependence; Z79.899 Other long term (current) drug therapy; I67.89 Other cerebrovascular disease; H81.10 Benign paroxysmal vertigo, unspecified ear; I50.32 Chronic diastolic (congestive) heart failure; K21.9 Gastro-esophageal reflux disease without esophagitis; D64.9 Anemia, unspecified; I65.01 Occlusion and stenosis of right vertebral artery

== ENCOUNTER 2021-07-03 13:27 | Inpatient (IN) ==
[2021-07-03] MEDS ORDERED: SODIUM CHLORIDE 0.9% 1000ML 1,000 ML IV SCH (13:30)
[2021-07-03] MEDS ORDERED: OPTIRAY 320 125ml IV ONE (13:41)
--- NOTE | 2021-07-03 13:47 | CT Scan Report ---
CT head/brain wo con CLINICAL HISTORY: Stroke Like Symptoms . Left-sided weakness and difficulty with speech. COMPARISON STUDY: 12/03/2018 CT DOSE: TECHNIQUE: Standard CT of the Brain was performed without IV contrast. A dose lowering technique was utilized adhering to the principles of ALARA. FINDINGS: Extraaxial space: There is no evidence for subdural hematoma. There are no extra-axial fluid collecti ons. Ventricles and cisterns: The ventricles are mildly to moderately dilated bilaterally. There is no fernando dence for midline shift or mass effect. Parenchyma: There is no subarachnoid or intraparenchymal hemorrhage. There is no evidence for an acut e infarct or cerebral edema. There is mild cerebral cortical atrophy and decreased attenuation in the periventricular white matter representing remote small vessel disease. There are no gross mass lesio ns. Osseous structures: There is no evidence for an acute fracture. The visualized paranasal sinuses are clear. The mastoid air cells are clear bilaterally. Soft tissues: There is no evidence for focal soft tissue swelling. IMPRESSION: 1. No acute intracerebral pathology. 2. Cerebral cortical atrophy and remote small vessel disease. ACT 112: Negative or not required by law. Electronically signed by: Jose Lozoya M.D. 07/03/2021 1:46 PM
[2021-07-03 13:52] LABS: Basophils # (auto) 0.09 K/uL (0-0.2); Basophils % (auto) 1.2 %; Eosinophils # (auto) 0.39 K/uL (0-0.5); Eosinophils % (auto) 5.2 %; Hematocrit (blood only) 29.5 % (42-52); Hemoglobin 9.8 g/dL (14.0-18.0); Immature Granulocytes # (auto) 0.01 K/uL (0.00-0.02); Immature Granulocytes % (auto) 0.1 %; Lymphocytes # (auto) 1.23 K/uL (1.2-3.4); Lymphocytes % (auto) 16.3 %; Mean Corpuscular Hgb Conc 33.2 g/dL (32-36); Mean Corpuscular Volume 99.3 fL (80-100); Mean Platelet Volume 9.8 fL (7.4-10.4); Monocytes # (auto) 0.61 K/uL (0.11-0.59); Monocytes % (auto) 8.1 %; Neutrophils # (auto) 5.22 K/uL (1.4-6.5); Neutrophils % (auto) 69.1 %; Platelet Count 339 K/uL (130-400); RDW Coefficient of Variation 13.2 % (11.5-14.5); RDW Standard Deviation 47.7 fL (36.4-46.3); Red Blood Count 2.97 M/uL (4.7-6.1); White Blood Count 7.55 K/uL (4.8-10.8)
--- NOTE | 2021-07-03 13:54 | XRay Report ---
XR chest 1V portable CLINICAL HISTORY: Stroke Like Symptoms. Evaluate cardiopulmonary status. COMPARISON STUDY: 12/21/2018 TECHNIQUE: 1 view of the chest FINDINGS: Single frontal view of the chest demonstrates the heart to again be enlarged. The lungs are clear of alveolar opacities. There is no evidence for pleural effusion. There is no evidence for vascular liu estion. There is no acute osseous pathology. IMPRESSION: 1. No acute cardiopulmonary disease. ACT 112: Negative or not required by law. Electronically signed by: Jose Lozoya M.D. 07/03/2021 1:52 PM
--- NOTE | 2021-07-03 13:55 | CT Scan Report ---
CT angio head w con, CT angio neck with con CLINICAL HISTORY: Stroke Like Symptoms TECHNIQUE: CT angiography of the head and neck was performed following intravenous administration of iodinated contrast. Coronal and sagittal MIPS were obtained from the axial data set and were submitte d for review. Automated dose lowering techniques and/or adjustment according to patient size were ut ilized for this examination. All measurements were calculated based on NASCET criteria. Comparison: None available at the time of this dictation. FINDINGS: Lungs and soft tissues are unremarkable. CTA Neck: A 3 vessel aortic arch is shown. There is no significant atherosclerotic plaque in the aor tic arch or the origins of the innominate, left common carotid, and left subclavian arteries. The c ommon carotid, external carotid, cervical segments of the internal carotid arteries, and the cervical segments of the vertebral arteries are patent without hemodynamically significant stenosis. The left vertebral artery is dominant. Tortuosity near the origin is seen. CTA Head: The anterior and posterior cerebral circulations are patent. No hemodynamically significan t stenosis, aneurysm, dissection, or arteriovenous malformation is shown. Atherosclerotic disease is noted. IMPRESSION: 1. No occlusion, hemodynamically significant stenosis, aneurysm, dissection, or arteriovenous malfor mation in the major intracranial arteries. 2. No occlusion, hemodynamically significant stenosis, or dissection in the major cervical arteries. Assessment of stenosis of the internal carotid arteries is based on NASCET criteria. ACT 112: Negative or not required by law. Electronically signed by: Don Aden M.D. 07/03/2021 1:54 PM
[2021-07-03 14:03] LABS: INR 1.2 (0.9-1.1); Partial Thromboplastin Ratio 0.9; Prothrombin Time 12.7 Seconds (9.0-12.0)
[2021-07-03 14:03] LABS: iSTAT Creatinine 1.5 mg/dl (0.6-1.3); iSTAT Hemoglobin 9.5 g/dl (14.0-18.0); iSTAT Ionized Calcium 1.25 mmol/l (1.12-1.32); iSTAT Potassium 4.6 mmol/L (3.3-5.0)
[2021-07-03 14:16] LABS: Troponin I < 0.03 ng/ml (0-0.04)
[2021-07-03 14:18] LABS: Alanine Aminotransferase 12 U/L (7-52); Albumin Globulin Ratio 1.2 (0.9-2); Albumin Level 3.8 gm/dl (3.4-5.0); Alkaline Phosphatase 82 U/L (34-104); Anion Gap 8 (3-11); Aspartate Aminotransferase 19 U/L (13-39); BUN Creatinine Ratio 15.6 (10-20); Bilirubin,Total 0.4 mg/dl (0.2-1.0); Blood Urea Nitrogen 23 mg/dl (6-23); Calcium 9.5 mg/dl (8.5-10.1); Carbon Dioxide 25 mmol/L (21-32); Chloride 100 mmol/L (98-107); Creatinine Clr Calc Pharmacy 33.7 ml/min; Est GFR (African American) 50.8 ml/min; Est GFR (Non-African American) 43.8 ml/min; Globulin 3.2 gm/dl (2.5-4.0); Glucose 133 mg/dl (70-99(Fasting)); Magnesium 1.3 mg/dl (1.7-2.4); Potassium 4.5 mmol/L (3.5-5.1); Sodium 133 mmol/L (136-145)
--- NOTE | 2021-07-03 15:38 | Emergency Department Note ---
History of Present Illness General Chief complaint: Stroke Alert Time Seen by Provider: 07/03/21 13:28 History of Present Illness 80-year-old male presents to the ED with a chief complaint of strokelike symptoms. The patient was transported here by EMS. He was a stroke alert. The patient apparently woke this morning and was feeling a little ill. He states that he was feeling a little nauseated and dizzy. A home health nurse came to the patient's house and was evaluating him when he suddenly had weakness in his left face and left arm and left leg. His speech was also garbled and he was having trouble finding words. That occurred around 1215 today. The patient was transported by EMS. In route here at 1238 his symptoms resolved. He is reportedly chronically on Xarelto. The patient has no complaints at this time. Home Medications Medication Instructions Recorded Confirmed Type esomeprazole magnesium 40 mg 40 mg PO QAM 10/31/18 07/03/21 History capsule,delayed release loratadine 10 mg tablet 10 mg PO QAM 10/31/18 07/03/21 History ferrous sulfate 325 mg (65 mg 325 mg PO QAM 12/03/18 07/03/21 History iron) tablet (iron) guaifenesin 600 mg tablet, 600 mg PO QAM PRN 12/03/18 07/03/21 History extended release 12 hr (Mucinex) atorvastatin 20 mg tablet 20 mg PO HS #30 tab 12/05/18 07/03/21 Rx meclizine 25 mg tablet 25 mg PO TID PRN #90 tab 01/04/19 07/03/21 Rx acetaminophen 500 mg capsule 1,000 mg PO BID 07/03/21 07/03/21 History celecoxib 200 mg capsule 200 mg PO QAM 07/03/21 07/03/21 History gabapentin 300 mg capsule 300 mg PO HS 07/03/21 07/03/21 History lisinopril 2.5 mg tablet 2.5 mg PO QAM 07/03/21 07/03/21 History rivaroxaban 20 mg tablet (Xarelto) 20 mg PO QAM 07/03/21 07/03/21 History tramadol 50 mg tablet 50 mg PO Q6H PRN 07/03/21 07/03/21 History vitamin B complex 1 cap PO QAM 07/03/21 07/03/21 History Allergies Allergy/AdvReac Type Severity Reaction Status Date / Time No Known Allergies Allergy Unverified 07/03/21 15:12 Past Med/Surg History Medical History (Updated 07/03/21 @ 15:38 by Blu Hartman DO) BPPV (benign paroxysmal positional vertigo) Diastolic CHF, chronic GERD (gastroesophageal reflux disease) Symptomatic vertebral artery stenosis 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 Surgical History History of vasectomy Family History Other No significant past medical history Social History Smoking Status: Former smoker Hx Alcohol Use: No Hx Substance Use: No Preferred Language: Malay Communication Ability: Effective Library Media Assistant Required: No Beliefs That Will Affect Care: None marital status: Current Living Situation: Spouse Feels Safe at Home: Yes Assistive Devices: Denture - Upper, Denture - Lower and Glasses Review of Systems A total of 10 systems reviewed and were otherwise negative Physical Exam Vital Signs Vital Signs - 24 hr 07/03/21 13:44 07/03/21 14:01 Temperature 36.6 C Temperature Source Oral Pulse Rate 72 Pulse Rate [Apical] 62 Pulse Rhythm Regular Pulse Rhythm [Apical] Regular Pulse Strength Normal Pulse Strength [Apical] Normal Respiratory Rate 18 18 Respiratory Effort / Characteristics Non-Labored Spontaneous Non-Labored Spontaneous Respiratory Depth Normal Normal Respiratory Pattern Regular Regular Blood Pressure 157/76 H Blood Pressure [Right Arm] 139/102 H Blood Pressure Mean 103 Blood Pressure Mean [Right Arm] 114 Blood Pressure Position Sitting Blood Pressure Position [Right Arm] Sitting Pulse Oximetry 96 97 Oxygen Delivery Method Room Air Room Air Sepsis Recent Fever Within 48 Hours No Sepsis New/Unexplained Change in Mental Status No Sepsis Action Taken by Nursing No Action Required CONSTITUTIONAL/VITAL SIGNS: Reviewed / noted above. GENERAL: Non-toxic in appearance. INTEGUMENTARY: Warm, dry, and [place]. HEAD: Normocephalic. EYES: without scleral icterus or trauma. ENT/OROPHARYNX: clear and moist. LYMPHADENOPATHY/NECK: Is supple without lymphadenopathy or meningismus. RESPIRATORY: Clear to auscultation bilaterally. No increased work of breathing. CARDIOVASCULAR: Regular rate and rhythm. GI/ABDOMEN: Soft and nontender. No organomegaly or pulsatile mass. EXTREMITIES: Warm and well perfused. BACK: No CVA tenderness. NEUROLOGICAL: Intact without focal deficits. No deficits on exam. Stroke scale 0 PSYCHIATRIC: normal affect. MUSCULOSKELETAL: Normally developed with good muscle tone. TRIAGE NURSING DOCUMENTATION REVIEWED. Course Administered Medications Discontinued Medications Ioversol (Optiray 320 125ml) 120 ml IV ONCE ONE Stop: 07/03/21 13:42 Last Admin: 07/03/21 13:41 Dose: 120 ml Documented by: [id number] Medical Decision Making Differential Diagnosis Differential includes acute coronary syndrome, myocardial infarction, CVA, TIA, anemia, infection, pneumonia, UTI, pyelonephritis, poor nutrition, dehydration, electrolyte disturbance,hypoglycemia. Medical Records Attestation: I reviewed the patient's medical records. Home Medications Current Medication List: was personally reviewed by me Laboratory Data Attestation: I reviewed the patient's lab results. Result diagrams: 07/03/21 13:44 07/03/21 13:44 Lab Results 07/03/21 07/03/21 07/03/21 Range/Units 13:43 13:44 13:44 WBC 7.55 (4.8-10.8) K/uL RBC 2.97 L (4.7-6.1) M/uL Hgb 9.8 L (14.0-18.0) g/dL POC Hgb (14.0-18.0) g/dl Hct 29.5 L (42-52) % POC Hct (42-52) % MCV 99.3 (80-100) fL MCH 33.0 (25-34) pg MCHC 33.2 (32-36) g/dL RDW Std Deviation 47.7 H (36.4-46.3) fL RDW Coeff of Ally 13.2 (11.5-14.5) % Plt Count 339 (130-400) K/uL MPV 9.8 (7.4-10.4) fL Immature Gran % (Auto) 0.1 % Neut % (Auto) 69.1 % Lymph % (Auto) 16.3 % [place]igo % (Auto) 8.1 % Eos % (Auto) 5.2 % Baso % (Auto) 1.2 % Neut # (Auto) 5.22 (1.4-6.5) K/uL Lymph # (Auto) 1.23 (1.2-3.4) K/uL Vigo # (Auto) 0.61 H (0.11-0.59) K/uL Eos # (Auto) 0.39 (0-0.5) K/uL Baso # (Auto) 0.09 (0-0.2) K/uL Immature Gran # (Auto) 0.01 (0.00-0.02) K/uL PT 12.7 H (9.0-12.0) Seconds INR 1.2 H (0.9-1.1) APTT 26.0 (21.0-31.0) Seconds PTT Ratio 0.9 POC Sodium (135-144) mmol/L Sodium (136-145) mmol/L POC Potassium (3.3-5.0) mmol/L Potassium (3.5-5.1) mmol/L POC Chloride (101-112) mmol/L Chloride (98-107) mmol/L Carbon Dioxide (21-32) mmol/L POC Total CO2 (24-31) mmol/L Anion Gap (3-11) POC Anion Gap (16-25) mmol/L POC BUN (7-18) mg/dl BUN (6-23) mg/dl Creatinine (0.6-1.4) mg/dl POC Creatinine (0.6-1.3) mg/dl Est Cr Clr Drug Dosing ml/min Est GFR ( Amer) ml/min Est GFR (Non-Af Amer) ml/min BUN/Creatinine Ratio (10-20) Glucose (70-99(Fasting)) mg/dl POC Glucose 140 H (70-99) mg/dl POC Glucose (other) (70-99) mg/dl Calcium (8.5-10.1) mg/dl POC Ioniz Calcium Beto (1.12-1.32) mmol/l Magnesium (1.7-2.4) mg/dl Total Bilirubin (0.2-1.0) mg/dl AST (13-39) U/L ALT (7-52) U/L Alkaline Phosphatase (34-104) U/L Troponin I (0-0.04) ng/ml Total Protein (6.0-8.3) gm/dl Albumin (3.4-5.0) gm/dl Globulin (2.5-4.0) gm/dl Albumin/Globulin Ratio (0.9-2) 07/03/21 07/03/21 Range/Units 13:44 13:50 WBC (4.8-10.8) K/uL RBC (4.7-6.1) M/uL Hgb (14.0-18.0) g/dL POC Hgb 9.5 L (14.0-18.0) g/dl Hct (42-52) % POC Hct 28 L (42-52) % MCV (80-100) fL MCH (25-34) pg MCHC (32-36) g/dL RDW Std Deviation (36.4-46.3) fL RDW Coeff of Ally (11.5-14.5) % Plt Count (130-400) K/uL MPV (7.4-10.4) fL Immature Gran % (Auto) % Neut % (Auto) % Lymph % (Auto) % Vigo % (Auto) % Eos % (Auto) % Baso % (Auto) % Neut # (Auto) (1.4-6.5) K/uL Lymph # (Auto) (1.2-3.4) K/uL [place]igo # (Auto) (0.11-0.59) K/uL Eos # (Auto) (0-0.5) K/uL Baso # (Auto) (0-0.2) K/uL Immature Gran # (Auto) (0.00-0.02) K/uL PT (9.0-12.0) Seconds INR (0.9-1.1) APTT (21.0-31.0) Seconds PTT Ratio POC Sodium 136 (135-144) mmol/L Sodium 133 L (136-145) mmol/L POC Potassium 4.6 (3.3-5.0) mmol/L Potassium 4.5 (3.5-5.1) mmol/L POC Chloride 100 L (101-112) mmol/L Chloride 100 (98-107) mmol/L Carbon Dioxide 25 (21-32) mmol/L POC Total CO2 26 (24-31) mmol/L Anion Gap 8 (3-11) POC Anion Gap 15.0 L (16-25) mmol/L POC BUN 28 H (7-18) mg/dl BUN 23 (6-23) mg/dl Creatinine 1.47 H (0.6-1.4) mg/dl POC Creatinine 1.5 H (0.6-1.3) mg/dl Est Cr Clr Drug Dosing 33.7 ml/min Est GFR ( Amer) 50.8 ml/min Est GFR (Non-Af Amer) 43.8 ml/min BUN/Creatinine Ratio 15.6 (10-20) Glucose 133 H (70-99(Fasting)) mg/dl POC Glucose (70-99) mg/dl POC Glucose (other) 133 H (70-99) mg/dl Calcium 9.5 (8.5-10.1) mg/dl POC Ioniz Calcium Beto 1.25 (1.12-1.32) mmol/l Magnesium 1.3 L (1.7-2.4) mg/dl Total Bilirubin 0.4 (0.2-1.0) mg/dl AST 19 (13-39) U/L ALT 12 (7-52) U/L Alkaline Phosphatase 82 (34-104) U/L Troponin I < 0.03 (0-0.04) ng/ml Total Protein 7.0 (6.0-8.3) gm/dl Albumin 3.8 (3.4-5.0) gm/dl Globulin 3.2 (2.5-4.0) gm/dl Albumin/Globulin Ratio 1.2 (0.9-2) Imaging Data Radiologist's Impression: Chest X-Ray 07/03/21 13:28 XR chest 1V portable CLINICAL HISTORY: Stroke Like Symptoms. Evaluate cardiopulmonary status. COMPARISON STUDY: 12/21/2018 TECHNIQUE: 1 view of the chest FINDINGS: Single frontal view of the chest demonstrates the heart to again be enlarged. The lungs are clear of alveolar opacities. There is no evidence for pleural effusion. There is no evidence for vascular congestion. There is no acute osseous pathology. IMPRESSION: 1. No acute cardiopulmonary disease. ACT 112: Negative or not required by law. Electronically signed by: Jose Lozoya M.D. 07/03/2021 1:[address] 07/03/21 13:28 CT head/brain wo con CLINICAL HISTORY: Stroke Like Symptoms . Left-sided weakness and difficulty with speech. COMPARISON STUDY: 12/03/2018 CT DOSE: TECHNIQUE: Standard CT of the Brain was performed without IV contrast. A dose lowering technique was utilized adhering to the principles of ALARA. FINDINGS: Extraaxial space: There is no evidence for subdural hematoma. There are no extra-axial fluid collections. Ventricles and cisterns: The ventricles are mildly to moderately dilated bilaterally. There is no evidence for midline shift or mass effect. Parenchyma: There is no subarachnoid or intraparenchymal hemorrhage. There is no evidence for an acute infarct or cerebral edema. There is mild cerebral cortical atrophy and decreased attenuation in the periventricular white matter representing remote small vessel disease. There are no gross mass lesions. Osseous structures: There is no evidence for an acute fracture. The visualized paranasal sinuses are clear. The mastoid air cells are clear bilaterally. Soft tissues: There is no evidence for focal soft tissue swelling. IMPRESSION: 1. No acute intracerebral pathology. 2. Cerebral cortical atrophy and remote small vessel disease. ACT 112: Negative or not required by law. Electronically signed by: Jose Lozoya M.D. 07/03/2021 1:46 PM Head CTA 07/03/21 13:28 CT angio head w con, CT angio neck with con CLINICAL HISTORY: Stroke Like Symptoms TECHNIQUE: CT angiography of the head and neck was performed following intravenous administration of iodinated contrast. Coronal and sagittal MIPS were obtained from the axial data set and were submitted for review. Automated dose lowering techniques and/or adjustment according to patient size were utilized for this examination. All measurements were calculated based on NASCET criteria. Comparison: None available at the time of this dictation. FINDINGS: Lungs and soft tissues are unremarkable. CTA Neck: A 3 vessel aortic arch is shown. There is no significant atherosclerotic plaque in the aortic arch or the origins of the innominate, left common carotid, and left subclavian arteries. The common carotid, external carotid, cervical segments of the internal carotid arteries, and the cervical segments of the vertebral arteries are patent without hemodynamically significant stenosis. The left vertebral artery is dominant. Tortuosity near the origin is seen. CTA Head: The anterior and posterior cerebral circulations are patent. No hemodynamically significant stenosis, aneurysm, dissection, or arteriovenous malformation is shown. Atherosclerotic disease is noted. IMPRESSION: 1. No occlusion, hemodynamically significant stenosis, aneurysm, dissection, or arteriovenous malformation in the major intracranial arteries. 2. No occlusion, hemodynamically significant stenosis, or dissection in the m ajor cervical arteries. Assessment of stenosis of the internal carotid arteries is based on NASCET criteria. ACT 112: Negative or not required by law. Electronically signed by: Don Aden M.D. 07/03/2021 1:54 PM Neck CTA 07/03/21 13:28 CT angio head w con, CT angio neck with con CLINICAL HISTORY: Stroke Like Symptoms TECHNIQUE: CT angiography of the head and neck was performed following intravenous administration of iodinated contrast. Coronal and sagittal MIPS were obtained from the axial data set and were submitted for review. Automated dose lowering techniques and/or adjustment according to patient size were utilized for this examination. All measurements were calculated based on NASCET criteria. Comparison: None available at the time of this dictation. FINDINGS: Lungs and soft tissues are unremarkable. CTA Neck: A 3 vessel aortic arch is shown. There is no significant atherosclerotic plaque in the aortic arch or the origins of the innominate, left common carotid, and left subclavian arteries. The common carotid, external carotid, cervical segments of the internal carotid arteries, and the cervical segments of the vertebral arteries are patent without hemodynamically significant stenosis. The left vertebral artery is dominant. Tortuosity near the origin is seen. CTA Head: The anterior and posterior cerebral circulations are patent. No hemodynamically significant stenosis, aneurysm, dissection, or arteriovenous malformation is shown. Atherosclerotic disease is noted. IMPRESSION: 1. No occlusion, hemodynamically significant stenosis, aneurysm, dissection, or arteriovenous malformation in the major intracranial arteries. 2. No occlusion, hemodynamically significant stenosis, or dissection in the major cervical arteries. Assessment of stenosis of the internal carotid arteries is based on NASCET criteria. ACT 112: Negative or not required by law. Electronically signed by: Don Aden M.D. 07/03/2021 1:54 PM ECG Data Attestation: I personally reviewed and interpreted this ECG as follows: Additional Comments: Twelve-lead EKG: Per my interpretation shows a normal sinus rhythm at a rate of 70. LVH. No ST elevation. No PVCs. Normal QTC MDM Narrative 80-year-old male presents with some strokelike symptoms with left-sided weakness. He does not remember the event. He was evaluated by stroke neurology. They had concerns about possible metabolic cause versus seizure. They did recommend an EEG. His exam on his arrival was normal and he has not had any complaints since he has been here. His EKG shows a normal sinus rhythm. CBC and chemistry panel was unremarkable. Troponin was negative. Chest x-ray did not show acute process. CT scan of the brain without contrast as well as CT scan angiograms of the head and neck were unremarkable. The patient will be seen by the hospitalist for further inpatient evaluation and care. He was given some IV fluids. Impression & Plan Brain TIA Discharge Plan Visit Data Chief Complaint: Stroke Alert ED Provider: Blu Hartman Discharge Problem: Brain TIA Patient Disposition: Being Evaluated by Hospitalist Forms Stand Alone Forms: [facility] Prescriptions Prescriptions: No Action meclizine 25 mg tablet 25 mg PO TID PRN (Reason: vertigo) Qty: 90 RF: 1 esomeprazole magnesium 40 mg capsule,delayed release(DR/EC) 40 mg PO QAM RF: 0 loratadine 10 mg tablet 10 mg PO QAM RF: 0 ferrous sulfate [iron] 325 mg (65 mg iron) Tablet 325 mg PO QAM RF: 0 guaifenesin [Mucinex] 600 mg Tablet Extended Release 12hr 600 mg PO QAM PRN (Reason: Congestion) RF: 0 atorvastatin 20 mg tablet 20 mg PO HS Qty: 30 RF: 0 celecoxib 200 mg capsule 200 mg PO QAM RF: 0 tramadol 50 mg tablet 50 mg PO Q6H PRN (Reason: Pain) RF: 0 gabapentin 300 mg capsule 300 mg PO HS RF: 0 lisinopril 2.5 mg tablet 2.5 mg PO QAM RF: 0 acetaminophen 500 mg Capsule 1,000 mg PO BID RF: 0 vitamin B complex [Super B Complex] Capsule 1 cap PO QAM RF: 0 Xarelto 20 mg tablet 20 mg PO QAM RF: 0 Referrals Referrals: Jason Bay PA-C [Primary Care Provider] -
--- NOTE | 2021-07-03 16:24 | History & Physical Report ---
Date of Service July 03, 2021 Assessment & Plan (1) Stroke-like symptom: Plan: 80 YOM with stroke like symptom onset as per HPI- not a candidate or thrombolytics- risk factors age, former smoker, afib hx. - NIHSS-1 - CTA head and neck- negative, no mention of previously noted right vertebral artery stenosis - MRI brain pending DDX: CVA vs. more likely TIA vs. absence seizure - Lipid panel in am- continue Atorvastatin 20mg daily for now - Continue Xarelto- will hold if ischemic CVA noted - ECHO - Hold Tramadol (2) BPPV (benign paroxysmal positional vertigo): Plan: As above- continue with Meclizine (3) GERD (gastroesophageal reflux disease): Plan: Hx of not on PPI- will add PPI as he is on celecoxib for his knees (4) Diastolic CHF, chronic: Plan: in history and reported by noted when he was treated for afib at [facility] - ECHO as above - He is not on any disease modifying medications (5) HTN (hypertension): Plan: Rule out CVA as above, trend BP overnight - currently decent controlled- goal <140 if no CVA - consider adding agent History of Present Illness Primary Care Provider: Jason Bay PA-C 80 YOM with past medical history of: BPPV, Afib (diagnosed at [facility] ~year ago- on Xarelto), remote history of heart failure at that time as well, right vertebral artery stenosis, total knee replacement. Patient brought in via EMS today for as stroke alert with symptoms onset around 1130 with worsening noted at 12:15, and symptoms mostly resolved on arrival. He was reported as NIHSS-0, negative CTA head, and neck. Deemed not a thrombolytic candidate. Patient is accompanied by his daughter and . reports that the patient got up around 11 today and called down for her to help him with his walker coming down the steps, he normally does this himself. She reports that he said he just did not feel right. The patient endorsed that he was having some dizziness with small little flashes in his vision. He made it down the steps a little slower than normal, and sat down to get some breakfast. He has a home health nurse that comes over about once a month and happened to come in on this day. She evaluated Matthew and during that time he had 2 episodes of the flashing and dizziness associated with him blankly staring at them. This lasted a few minutes, they called EMS- around 12:15 this started again with worsening of his mentation and associated with left sided weakness, slurring of speech, and decreased recollection of the event when it resolved. They believe that one lasted ~3-5 minutes. He felt better when EMS got there but remained with left sided weakness and slurring of speech. The patient has some loss of memory from this morning as well as mild cognitive delay, which is reported new for him. Patient does have long standing history of BPPV for which he takes a meclizine daily, patient and his both report that today symptoms were new. The patient did recently have his knee replaced in May and was placed on Tramadol and Celebrex as his only new medications. He rarely takes the Tramadol by report. For his Afib history, will attempt to get records from [facility]. He has not followed by a line servicer and appears to not seen his PCP since 2019- confirmed with they have not been there since then. COVID test on admission is: NEGATIVE Allergies Allergy/AdvReac Type Severity Reaction Status Date / Time No Known Allergies Allergy Unverified 07/03/21 15:12 Home Medications Medication Instructions Recorded Confirmed Type esomeprazole magnesium 40 mg 40 mg PO QAM 10/31/18 07/03/21 History capsule,delayed release loratadine 10 mg tablet 10 mg PO QAM 10/31/18 07/03/21 History ferrous sulfate 325 mg (65 mg 325 mg PO QAM 12/03/18 07/03/21 History iron) tablet (iron) guaifenesin 600 mg tablet, 600 mg PO QAM PRN 12/03/18 07/03/21 History extended release 12 hr (Mucinex) atorvastatin 20 mg tablet 20 mg PO HS #30 tab 12/05/18 07/03/21 Rx meclizine 25 mg tablet 25 mg PO TID PRN #90 tab 01/04/19 07/03/21 Rx acetaminophen 500 mg capsule 1,000 mg PO BID 07/03/21 07/03/21 History celecoxib 200 mg capsule 200 mg PO QAM 07/03/21 07/03/21 History gabapentin 300 mg capsule 300 mg PO HS 07/03/21 07/03/21 History lisinopril 2.5 mg tablet 2.5 mg PO QAM 07/03/21 07/03/21 History rivaroxaban 20 mg tablet (Xarelto) 20 mg PO QAM 07/03/21 07/03/21 History tramadol 50 mg tablet 50 mg PO Q6H PRN 07/03/21 07/03/21 History vitamin B complex 1 cap PO QAM 07/03/21 07/03/21 History Past Med/Surg History Medical History (Updated 07/03/21 @ 16:46 by JOYCE Kilpatrick) BPPV (benign paroxysmal positional vertigo) Diastolic CHF, chronic GERD (gastroesophageal reflux disease) Symptomatic vertebral artery stenosis 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 Surgical History History of vasectomy Family History Other No significant past medical history Social History Smoking Status: Former smoker Hx Alcohol Use: No Hx Substance Use: No Preferred Language: Japanese Communication Ability: Effective Life Guard Required: No Beliefs That Will Affect Care: None marital status: Current Living Situation: Spouse Feels Safe at Home: Yes Assistive Devices: Denture - Upper, Denture - Lower and Glasses Review of Systems Review of Systems: REVIEW OF SYSTEMS: Constitutional: No fever, sweats or chills Eyes: (+) flashes of lights (resolved), No diplopia, no worsening or blurred vision ENT: normal hearing, no trouble swallowing Respiratory: No cough, sputum, dyspnea at rest or on exertion Cardiovascular: No chest pain, tightness or palpitations Abdomen: No pain, nausea, vomiting, diarrhea or constipation Musculoskeletal: No joint pain, calf pain, swelling Neurologic: (+) left side weakness, numbness/tingling, or balance problems Psychiatric: No anxiety or depression Skin: No rash or itch Physical Exam Physical Exam: PHYSICAL EXAM: General: awake, alert, Head: Normocephalic, atraumatic Neuro: AAO x 3, speech clear, but mildly garbled and "thick", slow to respond to questions, right 5/5 upper and lower strength, left 4/5 strength upper and lower ext, sensation intact overall, mild dysarthria, no visual skew or visual field loss appreciated, no ataxia, decrease coordination with left arm with finger to nose. Chest: equal rise and fall of the chest, no accessory muscle use, no heaves or thrills, Clear to auscultation, on room air, Cardiac: Regular rate and rhythm, telemetry reviewed, skin warm dry, cap refill <3 seconds, peripheral pulses +2 no JVD, no murmur, no JVD, no edema GI: NABS x 4 quadrants, soft, nontender to palpation, no rebound, guarding or t enderness : Spontaneously voiding, no pain, no CVA tenderness, Extremities: Normal inspection, no peripheral edema or erythema, calfs nontender to palpation Psych: Normal mood and affect Skin: no rash or erythema Results & Data Results & Data ([facility]) Vital Signs (Past 12 Hours) Vital Signs Temp Pulse Pulse Resp BP BP Pulse Ox 07/03/21 15:31 68 16 144/74 H 95 07/03/21 15:28 95 07/03/21 14:38 64 16 152/86 H 07/03/21 14:01 62 18 139/102 H 97 07/03/21 13:44 36.6 C 72 18 157/76 H 96 Laboratory Results Abnormal lab results 07/03/21 07/03/21 07/03/21 Range/Units 13:43 13:44 13:44 RBC 2.97 L (4.7-6.1) M/uL Hgb 9.8 L (14.0-18.0) g/dL POC Hgb (14.0-18.0) g/dl Hct 29.5 L (42-52) % POC Hct (42-52) % RDW Std Deviation 47.7 H (36.4-46.3) fL [place] # (Auto) 0.61 H (0.11-0.59) K/uL PT 12.7 H (9.0-12.0) Seconds INR 1.2 H (0.9-1.1) Sodium (136-145) mmol/L POC Chloride (101-112) mmol/L POC Anion Gap (16-25) mmol/L POC BUN (7-18) mg/dl Creatinine (0.6-1.4) mg/dl POC Creatinine (0.6-1.3) mg/dl Glucose (70-99(Fasting)) mg/dl POC Glucose 140 H (70-99) mg/dl POC Glucose (other) (70-99) mg/dl Magnesium (1.7-2.4) mg/dl 07/03/21 07/03/21 Range/Units 13:44 13:50 RBC (4.7-6.1) M/uL Hgb (14.0-18.0) g/dL POC Hgb 9.5 L (14.0-18.0) g/dl Hct (42-52) % POC Hct 28 L (42-52) % RDW Std Deviation (36.4-46.3) fL [place] # (Auto) (0.11-0.59) K/uL PT (9.0-12.0) Seconds INR (0.9-1.1) Sodium 133 L (136-145) mmol/L POC Chloride 100 L (101-112) mmol/L POC Anion Gap 15.0 L (16-25) mmol/L POC BUN 28 H (7-18) mg/dl Creatinine 1.47 H (0.6-1.4) mg/dl POC Creatinine 1.5 H (0.6-1.3) mg/dl Glucose 133 H (70-99(Fasting)) mg/dl POC Glucose (70-99) mg/dl POC Glucose (other) 133 H (70-99) mg/dl Magnesium 1.3 L (1.7-2.4) mg/dl Diagnostic Findings Chest X-Ray 07/03/21 13:28 XR chest 1V portable CLINICAL HISTORY: Stroke Like Symptoms. Evaluate cardiopulmonary status. COMPARISON STUDY: 12/21/2018 TECHNIQUE: 1 view of the chest FINDINGS: Single frontal view of the chest demonstrates the heart to again be enlarged. The lungs are clear of alveolar opacities. There is no evidence for pleural effusion. There is no evidence for vascular congestion. There is no acute osseous pathology. IMPRESSION: 1. No acute cardiopulmonary disease. ACT 112: Negative or not required by law. Electronically signed by: Jose Lozoya M.D. 07/03/2021 1:[address] 07/03/21 13:28 CT head/brain wo con CLINICAL HISTORY: Stroke Like Symptoms . Left-sided weakness and difficulty with speech. COMPARISON STUDY: 12/03/2018 CT DOSE: TECHNIQUE: Standard CT of the Brain was performed without IV contrast. A dose lowering technique was utilized adhering to the principles of ALARA. FINDINGS: Extraaxial space: There is no evidence for subdural hematoma. There are no extra-axial fluid collections. Ventricles and cisterns: The ventricles are mildly to moderately dilated bilaterally. There is no evidence for midline shift or mass effect. Parenchyma: There is no subarachnoid or intraparenchymal hemorrhage. There is no evidence for an acute infarct or cerebral edema. There is mild cerebral cortical atrophy and decreased attenuation in the periventricular white matter representing remote small vessel disease. There are no gross mass lesions. Osseous structures: There is no evidence for an acute fracture. The visualized paranasal sinuses are clear. The mastoid air cells are clear bilaterally. Soft tissues: There is no evidence for focal soft tissue swelling. IMPRESSION: 1. No acute intracerebral pathology. 2. Cerebral cortical atrophy and remote small vessel disease. ACT 112: Negative or not required by law. Electronically signed by: Jose Lozoya M.D. 07/03/2021 1:46 PM Head CTA 07/03/21 13:28 CT angio head w con, CT angio neck with con CLINICAL HISTORY: Stroke Like Symptoms TECHNIQUE: CT angiography of the head and neck was performed following intravenous administration of iodinated contrast. Coronal and sagittal MIPS were obtained from the axial data set and were submitted for review. Automated dose lowering techniques and/or adjustment according to patient size were utilized for this examination. All measurements were calculated based on NASCET criteria. Comparison: None available at the time of this dictation. FINDINGS: Lungs and soft tissues are unremarkable. CTA Neck: A 3 vessel aortic arch is shown. There is no significant atherosclerotic plaque in the aortic arch or the origins of the innominate, left common carotid, and left subclavian arteries. The common carotid, external carotid, cervical segments of the internal carotid arteries, and the cervical segments of the vertebral arteries are patent without hemodynamically significant stenosis. The left vertebral artery is dominant. Tortuosity near the origin is seen. CTA Head: The anterior and posterior cerebral circulations are patent. No hemodynamically significant stenosis, aneurysm, dissection, or arteriovenous malformation is shown. Atherosclerotic disease is noted. IMPRESSION: 1. No occlusion, hemodynamically significant stenosis, aneurysm, dissection, or arteriovenous malformation in the major intracranial arteries. 2. No occlusion, hemodynamically significant stenosis, or dissection in the major cervical arteries. Assessment of stenosis of the internal carotid arteries is based on NASCET criteria. ACT 112: Negative or not required by law. Electronically signed by: Don Aden M.D. 07/03/2021 1:54 PM Neck CTA 07/03/21 13:28 CT angio head w con, CT angio neck with con CLINICAL HISTORY: Stroke Like Symptoms TECHNIQUE: CT angiography of the head and neck was performed following intravenous administration of iodinated contrast. Coronal and sagittal MIPS were obtained from the axial data set and were submitted for review. Automated dose lowering techniques and/or adjustment according to patient size were utilized for this examination. All measurements were calculated based on NASCET criteria. Comparison: None available at the time of this dictation. FINDINGS: Lungs and soft tissues are unremarkable. CTA Neck: A 3 vessel aortic arch is shown. There is no significant atherosclerotic plaque in the aortic arch or the origins of the innominate, left common carotid, and left subclavian arteries. The common carotid, external carotid, cervical segments of the internal carotid arteries, and the cervical segments of the vertebral arteries are patent without hemodynamically significant stenosis. The left vertebral artery is dominant. Tortuosity near the origin is seen. CTA Head: The anterior and posterior cerebral circulations are patent. No hemodynamically significant stenosis, aneurysm, dissection, or arteriovenous malformation is shown. Atherosclerotic disease is noted. IMPRESSION: 1. No occlusion, hemodynamically significant stenosis, aneurysm, dissection, or arteriovenous malformation in the major intracranial arteries. 2. No occlusion, hemodynamically significant stenosis, or dissection in the major cervical arteries. Assessment of stenosis of the internal carotid arteries is based on NASCET criteria. ACT 112: Negative or not required by law. Electronically signed by: Don Aden M.D. 07/03/2021 1:54 PM Medications Administered Sodium Chloride (Nss 1000ml) 1,000 mls @ 50 mls/hr IV .Q20H NORBERTO Stop: 08/02/21 13:29 Last Admin: 07/03/21 15:55 Dose: 50 mls/hr Documented by: [id number] Discontinued Medications Ioversol (Optiray 320 125ml) 120 ml IV ONCE ONE Stop: 07/03/21 13:42 Last Admin: 07/03/21 13:41 Dose: 120 ml Documented by: [id number] ECG Additional Comments: Normal sinus rhythm Left ventricular hypertrophy with QRS widening Cannot rule out Septal infarct , age undetermined Abnormal ECG When compared with ECG of 21-DEC-2018 10:17, No significant change was found Code Status & VTE Plan Code Status CODE: FULL VTE: SCDS, Xarelto VTE Prophylaxis Plan VTE Prophylaxis will be ordered: Yes Supervising Physician Co-Signing Physician Notes I personally examined the patient and verified all contreras points of history and exam, discussed case, and agree with decision making with Caro COOK stroke like symptoms. has risks. vitals noted nad heent nc at mmm breathing unlabored no accessory muscles good effort stroke like symptoms - MRI next. if no CVA then have to consider TIA (depending on progress of symptoms) vs other non-cerebrovascular etiologies such as seizure/etc otherwise as above PG Care Time/CCT Total # of Minutes Spent Total Time Spent with Patient: Total time spent is greater than 50% in coordination of care (as documented) at patient's floor/unit and/or counseling patient: Coding Level of Care Code INT OBSERVATION CARE 70M LVL 3 Diagnoses BPPV (benign paroxysmal positional vertigo) H81.10 GERD (gastroesophageal reflux disease) K21.9 Diastolic CHF, chronic I50.32 HTN (hypertension) I10 Stroke-like symptom R29.90
--- NOTE | 2021-07-03 17:04 | Electrocardiogram Report ---
Test Reason : Blood Pressure : / mmHG Vent. Rate : 071 BPM Atrial Rate : 071 BPM P-R Int : 148 ms QRS Dur : 128 ms QT Int : 428 ms P-R-T Axes : 067 -18 048 degrees QTc Int : 465 ms Poor data quality, interpretation may be adversely affected Normal sinus rhythm Left ventricular hypertrophy with QRS widening Abnormal ECG When compared with ECG of 21-DEC-2018 10:17, No significant change was found Confirmed by Oscar Burns ([id number]) on 07/03/2021 5:04:10 PM Referred By: Confirmed By:Giancarlo Burns
[2021-07-03] MEDS: MAGNESIUM SULFATE / D5W 1 GM/100 ML BAG IV SCH ×4 (17:09→23:51)
[2021-07-03] MEDS: PANTOprazole 40 MG TAB PO SCH (18:30)
--- NOTE | 2021-07-03 19:57 | Magnetic Resonance Report ---
MR brain wo con CLINICAL HISTORY: TIA vs. Stroke. Weakness and aphasia. COMPARISON STUDY: CT of the brain and CT of the brain from 07/03/2021. Previous MR from September 03, 2018 TECHNIQUE: Multiplanar multisequence images of the Brain were performed without IV contrast. Diffusi on weighted imaging and ADC mapping was also performed. FINDINGS: Extra-axial space: There is no evidence for a subdural hematoma, There are no extra-axial fluid db ections. Ventricles and cisterns: The ventricles are again mildly to moderately dilated bilaterally. There is no evidence for midline shift or mass effect. Parenchyma: There is no evidence for an acute hemorrhage or infarct. No acute diffusion abnormalities are noted on diffusion weighted imaging or ADC mapping. There is normal chiu-white differentiation. There is mild cerebral cortical atrophy present. There is bright signal seen on FLAIR weighted seque nces within the centrum semiovale and periventricular white matter characteristic of remote small ves hernán disease. The sulci and gyri appear normal without effacement. The midline structures are unremark able. The posterior fossa structures appear normal. There is no evidence for mass lesion. Osseous structures: The paranasal sinuses are well aerated. The mastoid air cells are well aerated. Soft tissues: No focal soft tissue abnormalities are identified. IMPRESSION: 1. No acute intracranial abnormalities. 2. Cerebral cortical atrophy and remote small vessel disease are again seen. ACT 112: Negative or not required by law. Electronically signed by: Jose Lozoya M.D. 07/03/2021 7:55 PM
[2021-07-03] MEDS ORDERED: MECLIZINE HCL 25 MG TAB PO PRN (20:33)
[2021-07-03] MEDS ORDERED: ONDANSETRON INJ 2 MG/ML 2 ML VIAL IV PRN (20:33)
[2021-07-03] MEDS ORDERED: PHARMACIST DISCHARGE MED REC CONSULT PRN (20:33)
[2021-07-03] MEDS: GABAPENTIN 300 MG CAP PO SCH (21:17)
[2021-07-03] MEDS: ATORVASTATIN 20 MG TAB PO SCH (21:18)
[2021-07-03] MEDS: ACETAMINOPHEN 500 MG TAB PO SCH (21:18)
[2021-07-04 07:30] LABS: Basophils # (auto) 0.08 K/uL (0-0.2); Basophils % (auto) 0.9 %; Eosinophils % (auto) 6.8 %; Hematocrit (blood only) 30.3 % (42-52); Hemoglobin 9.9 g/dL (14.0-18.0); Immature Granulocytes # (auto) 0.02 K/uL (0.00-0.02); Immature Granulocytes % (auto) 0.2 %; Lymphocytes # (auto) 2.59 K/uL (1.2-3.4); Lymphocytes % (auto) 29.2 %; Mean Corpuscular Hemoglobin 32.6 pg (25-34); Mean Corpuscular Hgb Conc 32.7 g/dL (32-36); Mean Corpuscular Volume 99.7 fL (80-100); Mean Platelet Volume 10.4 fL (7.4-10.4); Monocytes # (auto) 0.75 K/uL (0.11-0.59); Monocytes % (auto) 8.5 %; Neutrophils # (auto) 4.83 K/uL (1.4-6.5); Neutrophils % (auto) 54.4 %; Platelet Count 391 K/uL (130-400); RDW Coefficient of Variation 13.2 % (11.5-14.5); Red Blood Count 3.04 M/uL (4.7-6.1); White Blood Count 8.87 K/uL (4.8-10.8)
[2021-07-04 07:36] LABS: Estimated Average Glucose 100 mg/dl; Hemoglobin A1C 5.1 % (4.5-5.6)
[2021-07-04 08:01] LABS: BUN Creatinine Ratio 18.1 (10-20); Calcium 10.1 mg/dl (8.5-10.1); Chol HDL Ratio 3.2 (0-5); Est GFR (African American) 60.6 ml/min; Est GFR (Non-African American) 52.3 ml/min; Potassium 4.2 mmol/L (3.5-5.1)
--- NOTE | 2021-07-04 08:07 | Hospitalist Progress Note ---
Date of Service July 04, 2021 Assessment & Plan (1) Stroke-like symptom: Plan: 80 YOM with stroke like symptom onset as per HPI --> L sided weakness, garbled/speech, blank stares, flashing lights/visual disturbance, pre-syncope Hx smoker, afib, on xarelto BP was elevated on admission, diastolic >100, could have been TIA, however will obtain further imaging as outlined: WBC wnl, afebrile NIHSS 1 on admission, 0 currently CTA head/neck negative, no mention of previously noted R vertebral artery stenosis MRI brain without contrast negative Telestroke recommendation for EEG --> ordered, done but not yet read I did speak with Dr Sanders this morning regarding patients case and reviewed imaging, agreed with being on aspirin daily. Ammonia wnl. --> Formal consultation placed and to be done tomorrow A1c 5.1 Lipid panel -- TG 120, cholesterol 118, LDL 57, HDL 37 --> continues on atorvastatin 20mg daily Xarelto continued Resumed aspirin 81mg daily and would continue at discharge. On omeprazole [employer] for GI proph ECHO --> LV systolic function normal. Borderline LAE. NO INTERATRIAL SHUNT. Mild- moderate tricuspid regurgitation. Borderline aortic root dilation. RVSP pressure elevated at 40-50mmhg Monitoring overnight -- SR 70s this morning, had been 70-120s overnight Of note, Cr also up 1.47 on admission (given IVF) --> 1.28 on repeat --> Asked nursing to obtain orthostatics, + --> additional 500cc NS to be provided Dysphagia screening passed, Speech signed off PT/OT consulted (2) HTN (hypertension): Plan: Elevated to 200/114 in 2019 with similar issues On admission, BP was 157/76 and also reading 139/102 Typically maintained on lisinopril 2.5mg daily Currently 132/72 and will monitor Hydralazine prn SBP>200, DBP>100 (3) Hypomagnesemia: Plan: 1.3 on admission, ?2nd to PPI use 4gm IV ordered --> repeat wnl but will monitor to ensure stable (4) Paroxysmal A-fib: Plan: hx of, worked up at [place] remains on xarelto (also on for TKA done in May by Dr Jason Goodwin in [place]) (5) BPPV (benign paroxysmal positional vertigo): Plan: As above- continue with Meclizine prn (6) GERD (gastroesophageal reflux disease): Plan: On esomeprazole 40mg daily [employer], utilzing protonix 40mg daily while inpatient --> On celecoxib for knees/recent replacement, consider BID dosing if needed but cautious given admission MAGNESIUM 1.3 -- 4gm IV ordered, normal on repeat (7) Diastolic CHF, chronic: Plan: in history and reported by noted when he was treated for afib at [facility] ECHO as above -- On lisinopril 2.5mg daily, no diuretics (8) Anemia: Plan: Hgb 9.9 on admission, normocytic Per , recent dx iron deficiency anemia (also recent TKA as above) and on NSAID/AC, and placed on daily supplementation Hgb stable on repeat Iron studies obtained, acceptable. B12 low normal, consider PO supp. Folate wnl check fecal occult for completeness CBC in AM (9) Swelling of lymph node: Plan: L neck -- been present on/off per patient mobile, non-tender ?recent viral process ultrasound for further eval as not seen on prior CT neck on admission for #1 Plan: continued inpatient stay Admission and Anticipated Discharge Date Admission Date: July 03, 2021 Supervising Physician Co-Signing Physician Notes PA Supervision Note: I did not personally see or examine the patient today, but I verified all contreras points of RAHEEL Martinez's assessment and plan with the following exceptions/additions: None Subjective Patient evaluated this afternoon Didn't get much sleep Stated equilibrium off and was just "feeling not himself" and had sensation of flashing headlights that he believes last about an hour/hour and a half and resolved. Didn't do anything or take anything to have them resolved. Then noted to recur on route to hospital lasting about 30 minutes or so. He states equilibrium not new finding given hx BPPV and takes meclizine as needed for those symptoms, but visual symptoms were concerning. These were also in combination with left sided weakness, which has since resolved. Denies further symptoms. Feeling fatigued. Does have some swelling to L neck/lymph node and notes he has had this on/off for many year but never mentioned to PCP as wasn't painful. States no longer on ASA since put on Xarelto for his hx paf. Denies palpitations, chest pain, or shortness of breath. Does have some seasonal allergies and takes over the counter medications for such. Not yet worked with therapy but discussed will see how he does with PT/OT and review with supervising physician. Also asked neurology to review MRI for completeness but A1c and lipid panel acceptable. On lipitor 20mg daily. Per /son, patient recently dx with anemia and placed on iron. They had just been visiting with patient prior to taken down for testing and stated he looked great. Discussed plan/additional testing and hopefully will be able to discharge tomorrow afternoon after formal neuro consult. does note that patient was to be taking aspirin as she recently found out by neurology office -- discussed I had spoke with Dr Sanders this morning prior to speaking with them and he also recommended for prevention. Review of Systems Review of Systems: All systems reviewed & are unremarkable except as noted in HPI & below Physical Exam Physical Exam: General: WD/WN male resting in bed upon arrival, no acute distress, easily awoken alert, oriented to person, place, time, no confusion, no slurred speech, no pronator drift, finger-finger testing without issue, gait not tested at this time, moves all extremities, following commands HEENT: pupils equal and reactive to light, trachea midline without deviation L sided lymphadenopathy, palpable ~2cm mobile lymph node, non-painful, non- tender R ear with possible slight fullness, no tragus tenderness/pinna, no erythema or exudate Resp: CTAB, no w/c/r, on room air SpO2 97% CV: RRR, +murmur, no edema, calves non-tender GI: +BS, soft, non-tender, no guarding/rebound : no wheeler MSK: moves all extremities, strength equal Neuro: CN intact grossly, sensation intact, no dysarthria, no visual field cute Psych: AOX3, pleasant and cooperative Skin: no obvious rashes/lesions Results & Data Results & Data ([facility]) Vital Signs (Past 12 Hours) Vital Signs Temp Pulse Pulse Pulse Resp BP BP 07/04/21 07:47 36.8 C 76 12 130/80 07/04/21 04:05 36.7 C 84 18 152/78 H 07/03/21 23:27 36.9 C 78 18 137/77 07/03/21 22:18 73 07/03/21 20:39 36.9 C 75 18 179/85 H 07/03/21 20:37 68 07/03/21 20:33 Pulse Ox Pulse Ox 07/04/21 07:47 95 07/04/21 04:05 94 07/03/21 23:27 95 07/03/21 22:18 07/03/21 20:39 98 07/03/21 20:37 07/03/21 20:33 98 Laboratory Results 07/04/21 07/04/21 07/04/21 Range/Units 11:48 11:29 08:21 WBC (4.8-10.8) K/uL RBC (4.7-6.1) M/uL Hgb (14.0-18.0) g/dL Hct (42-52) % MCV (80-100) fL MCH (25-34) pg MCHC (32-36) g/dL RDW Std Deviation (36.4-46.3) fL RDW Coeff of Ally (11.5-14.5) % Plt Count (130-400) K/uL MPV (7.4-10.4) fL Immature Gran % (Auto) % Neut % (Auto) % Lymph % (Auto) % Dewey % (Auto) % Eos % (Auto) % Baso % (Auto) % Neut # (Auto) (1.4-6.5) K/uL Lymph # (Auto) (1.2-3.4) K/uL Dewey # (Auto) (0.11-0.59) K/uL Eos # (Auto) (0-0.5) K/uL Baso # (Auto) (0-0.2) K/uL Immature Gran # (Auto) (0.00-0.02) K/uL Sodium (136-145) mmol/L Potassium (3.5-5.1) mmol/L Chloride (98-107) mmol/L Carbon Dioxide (21-32) mmol/L Anion Gap (3-11) BUN (6-23) mg/dl Creatinine (0.6-1.4) mg/dl Est Cr Clr Drug Dosing ml/min Est GFR ( Amer) ml/min Est GFR (Non-Af Amer) ml/min BUN/Creatinine Ratio (10-20) Glucose (70-99(Fasting)) mg/dl POC Glucose 99 (70-99) mg/dl Estimat Average Glucose mg/dl Hemoglobin A1c (4.5-5.6) % Calcium (8.5-10.1) mg/dl Magnesium (1.7-2.4) mg/dl Iron (35-175) mcg/dl TIBC (250-450) mcg/dl Unsaturated IBC (155-355) mcg/dl Transferrin % Sat (20-50) % Ferritin (8-388) ng/ml Ammonia 25.0 (18-72) umol/L Triglycerides (0-150) mg/dl Cholesterol (0-200) mg/dl LDL Cholesterol, Calc mg/dl VLDL Cholesterol, Calc (0-30) mg/dl HDL Cholesterol mg/dl Cholesterol/HDL Ratio (0-5) Vitamin B12 391 (180-914) pg/ml Folate > 22.30 (>5.38) ng/ml SARS-CoV-2, RNA, NAAT (NEGATIVE) 07/04/21 07/04/21 07/04/21 Range/Units 08:21 08:21 07:41 WBC (4.8-10.8) K/uL RBC (4.7-6.1) M/uL Hgb (14.0-18.0) g/dL Hct (42-52) % MCV (80-100) fL MCH (25-34) pg MCHC (32-36) g/dL RDW Std Deviation (36.4-46.3) fL RDW Coeff of Ally (11.5-14.5) % Plt Count (130-400) K/uL MPV (7.4-10.4) fL Immature Gran % (Auto) % Neut % (Auto) % Lymph % (Auto) % Dewey % (Auto) % Eos % (Auto) % Baso % (Auto) % Neut # (Auto) (1.4-6.5) K/uL Lymph # (Auto) (1.2-3.4) K/uL Dewey # (Auto) (0.11-0.59) K/uL Eos # (Auto) (0-0.5) K/uL Baso # (Auto) (0-0.2) K/uL Immature Gran # (Auto) (0.00-0.02) K/uL Sodium (136-145) mmol/L Potassium (3.5-5.1) mmol/L Chloride (98-107) mmol/L Carbon Dioxide (21-32) mmol/L Anion Gap (3-11) BUN (6-23) mg/dl Creatinine (0.6-1.4) mg/dl Est Cr Clr Drug Dosing ml/min Est GFR ( Amer) ml/min Est GFR (Non-Af Amer) ml/min BUN/Creatinine Ratio (10-20) Glucose (70-99(Fasting)) mg/dl POC Glucose 102 H (70-99) mg/dl Estimat Average Glucose mg/dl Hemoglobin A1c (4.5-5.6) % Calcium (8.5-10.1) mg/dl Magnesium 2.2 (1.7-2.4) mg/dl Iron 48 (35-175) mcg/dl TIBC 354 (250-450) mcg/dl Unsaturated IBC 306 (155-355) mcg/dl Transferrin % Sat 14 L (20-50) % Ferritin 121.2 (8-388) ng/ml Ammonia (18-72) umol/L Triglycerides (0-150) mg/dl Cholesterol (0-200) mg/dl LDL Cholesterol, Calc mg/dl VLDL Cholesterol, Calc (0-30) mg/dl HDL Cholesterol mg/dl Cholesterol/HDL Ratio (0-5) Vitamin B12 (180-914) pg/ml Folate (>5.38) ng/ml SARS-CoV-2, RNA, NAAT (NEGATIVE) 07/04/21 07/04/21 07/04/21 Range/Units 06:38 06:38 06:38 WBC 8.87 (4.8-10.8) K/uL RBC 3.04 L (4.7-6.1) M/uL Hgb 9.9 L (14.0-18.0) g/dL Hct 30.3 L (42-52) % MCV 99.7 (80-100) fL MCH 32.6 (25-34) pg MCHC 32.7 (32-36) g/dL RDW Std Deviation 48.0 H (36.4-46.3) fL RDW Coeff of Ally 13.2 (11.5-14.5) % Plt Count 391 (130-400) K/uL MPV 10.4 (7.4-10.4) fL Immature Gran % (Auto) 0.2 % Neut % (Auto) 54.4 % Lymph % (Auto) 29.2 % Dewey % (Auto) 8.5 % Eos % (Auto) 6.8 % Baso % (Auto) 0.9 % Neut # (Auto) 4.83 (1.4-6.5) K/uL Lymph # (Auto) 2.59 (1.2-3.4) K/uL Dewey # (Auto) 0.75 H (0.11-0.59) K/uL Eos # (Auto) 0.60 H (0-0.5) K/uL Baso # (Auto) 0.08 (0-0.2) K/uL Immature Gran # (Auto) 0.02 (0.00-0.02) K/uL Sodium 138 (136-145) mmol/L Potassium 4.2 (3.5-5.1) mmol/L Chloride 104 (98-107) mmol/L Carbon Dioxide 24 (21-32) mmol/L Anion Gap 10 (3-11) BUN 23 (6-23) mg/dl Creatinine 1.27 (0.6-1.4) mg/dl Est Cr Clr Drug Dosing 39.0 ml/min Est GFR ( Amer) 60.6 ml/min Est GFR (Non-Af Amer) 52.3 ml/min BUN/Creatinine Ratio 18.1 (10-20) Glucose 91 (70-99(Fasting)) mg/dl POC Glucose (70-99) mg/dl Estimat Average Glucose 100 mg/dl Hemoglobin A1c 5.1 (4.5-5.6) % Calcium 10.1 (8.5-10.1) mg/dl Magnesium (1.7-2.4) mg/dl Iron (35-175) mcg/dl TIBC (250-450) mcg/dl Unsaturated IBC (155-355) mcg/dl Transferrin % Sat (20-50) % Ferritin (8-388) ng/ml Ammonia (18-72) umol/L Triglycerides 120 (0-150) mg/dl Cholesterol 118 (0-200) mg/dl LDL Cholesterol, Calc 57 mg/dl VLDL Cholesterol, Calc 24 (0-30) mg/dl HDL Cholesterol 37 mg/dl Cholesterol/HDL Ratio 3.2 (0-5) Vitamin B12 (180-914) pg/ml Folate (>5.38) ng/ml SARS-CoV-2, RNA, NAAT (NEGATIVE) 07/03/21 07/03/21 Range/Units 23:10 15:11 WBC (4.8-10.8) K/uL RBC (4.7-6.1) M/uL Hgb (14.0-18.0) g/dL Hct (42-52) % MCV (80-100) fL MCH (25-34) pg MCHC (32-36) g/dL RDW Std Deviation (36.4-46.3) fL RDW Coeff of Ally (11.5-14.5) % Plt Count (130-400) K/uL MPV (7.4-10.4) fL Immature Gran % (Auto) % Neut % (Auto) % Lymph % (Auto) % Dewey % (Auto) % Eos % (Auto) % Baso % (Auto) % Neut # (Auto) (1.4-6.5) K/uL Lymph # (Auto) (1.2-3.4) K/uL Dewey # (Auto) (0.11-0.59) K/uL Eos # (Auto) (0-0.5) K/uL Baso # (Auto) (0-0.2) K/uL Immature Gran # (Auto) (0.00-0.02) K/uL Sodium (136-145) mmol/L Potassium (3.5-5.1) mmol/L Chloride (98-107) mmol/L Carbon Dioxide (21-32) mmol/L Anion Gap (3-11) BUN (6-23) mg/dl Creatinine (0.6-1.4) mg/dl Est Cr Clr Drug Dosing ml/min Est GFR ( Amer) ml/min Est GFR (Non-Af Amer) ml/min BUN/Creatinine Ratio (10-20) Glucose (70-99(Fasting)) mg/dl POC Glucose 146 H (70-99) mg/dl Estimat Average Glucose mg/dl Hemoglobin A1c (4.5-5.6) % Calcium (8.5-10.1) mg/dl Magnesium (1.7-2.4) mg/dl Iron (35-175) mcg/dl TIBC (250-450) mcg/dl Unsaturated IBC (155-355) mcg/dl Transferrin % Sat (20-50) % Ferritin (8-388) ng/ml Ammonia (18-72) umol/L Triglycerides (0-150) mg/dl Cholesterol (0-200) mg/dl LDL Cholesterol, Calc mg/dl VLDL Cholesterol, Calc (0-30) mg/dl HDL Cholesterol mg/dl Cholesterol/HDL Ratio (0-5) Vitamin B12 (180-914) pg/ml Folate (>5.38) ng/ml SARS-CoV-2, RNA, NAAT NEGATIVE (NEGATIVE) Diagnostic Findings Chest X-Ray 07/03/21 13:28 XR chest 1V portable CLINICAL HISTORY: Stroke Like Symptoms. Evaluate cardiopulmonary status. COMPARISON STUDY: 12/21/2018 TECHNIQUE: 1 view of the chest FINDINGS: Single frontal view of the chest demonstrates the heart to again be enlarged. The lungs are clear of alveolar opacities. There is no evidence for pleural effusion. There is no evidence for vascular congestion. There is no acute osseous pathology. IMPRESSION: 1. No acute cardiopulmonary disease. ACT 112: Negative or not required by law. Electronically signed by: Jose Lozoya M.D. 07/03/2021 1:[address] 07/03/21 13:28 CT head/brain wo con CLINICAL HISTORY: Stroke Like Symptoms . Left-sided weakness and difficulty with speech. COMPARISON STUDY: 12/03/2018 CT DOSE: TECHNIQUE: Standard CT of the Brain was performed without IV contrast. A dose lowering technique was utilized adhering to the principles of ALARA. FINDINGS: Extraaxial space: There is no evidence for subdural hematoma. There are no extra-axial fluid collections. Ventricles and cisterns: The ventricles are mildly to moderately dilated bilaterally. There is no evidence for midline shift or mass effect. Parenchyma: There is no subarachnoid or intraparenchymal hemorrhage. There is no evidence for an acute infarct or cerebral edema. There is mild cerebral cortical atrophy and decreased attenuation in the periventricular white matter representing remote small vessel disease. There are no gross mass lesions. Osseous structures: There is no evidence for an acute fracture. The visualized paranasal sinuses are clear. The mastoid air cells are clear bilaterally. Soft tissues: There is no evidence for focal soft tissue swelling. IMPRESSION: 1. No acute intracerebral pathology. 2. Cerebral cortical atrophy and remote small vessel disease. ACT 112: Negative or not required by law. Electronically signed by: Jose Lozoya M.D. 07/03/2021 1:46 PM Head CTA 07/03/21 13:28 CT angio head w con, CT angio neck with con CLINICAL HISTORY: Stroke Like Symptoms TECHNIQUE: CT angiography of the head and neck was performed following intra venous administration of iodinated contrast. Coronal and sagittal MIPS were obtained from the axial data set and were submitted for review. Automated dose lowering techniques and/or adjustment according to patient size were utilized for this examination. All measurements were calculated based on NASCET criteria. Comparison: None available at the time of this dictation. FINDINGS: Lungs and soft tissues are unremarkable. CTA Neck: A 3 vessel aortic arch is shown. There is no significant atherosclerotic plaque in the aortic arch or the origins of the innominate, left common carotid, and left subclavian arteries. The common carotid, external carotid, cervical segments of the internal carotid arteries, and the cervical segments of the vertebral arteries are patent without hemodynamically significant stenosis. The left vertebral artery is dominant. Tortuosity near the origin is seen. CTA Head: The anterior and posterior cerebral circulations are patent. No hemodynamically significant stenosis, aneurysm, dissection, or arteriovenous malformation is shown. Atherosclerotic disease is noted. IMPRESSION: 1. No occlusion, hemodynamically significant stenosis, aneurysm, dissection, or arteriovenous malformation in the major intracranial arteries. 2. No occlusion, hemodynamically significant stenosis, or dissection in the major cervical arteries. Assessment of stenosis of the internal carotid arteries is based on NASCET criteria. ACT 112: Negative or not required by law. Electronically signed by: Don Aden M.D. 07/03/2021 1:54 PM Neck CTA 07/03/21 13:28 CT angio head w con, CT angio neck with con CLINICAL HISTORY: Stroke Like Symptoms TECHNIQUE: CT angiography of the head and neck was performed following i ntravenous administration of iodinated contrast. Coronal and sagittal MIPS were obtained from the axial data set and were submitted for review. Automated dose lowering techniques and/or adjustment according to patient size were utilized for this examination. All measurements were calculated based on NASCET criteria. Comparison: None available at the time of this dictation. FINDINGS: Lungs and soft tissues are unremarkable. CTA Neck: A 3 vessel aortic arch is shown. There is no significant atherosclerotic plaque in the aortic arch or the origins of the innominate, left common carotid, and left subclavian arteries. The common carotid, external carotid, cervical segments of the internal carotid arteries, and the cervical segments of the vertebral arteries are patent without hemodynamically significant stenosis. The left vertebral artery is dominant. Tortuosity near the origin is seen. CTA Head: The anterior and posterior cerebral circulations are patent. No hemodynamically significant stenosis, aneurysm, dissection, or arteriovenous malformation is shown. Atherosclerotic disease is noted. IMPRESSION: 1. No occlusion, hemodynamically significant stenosis, aneurysm, dissection, or arteriovenous malformation in the major intracranial arteries. 2. No occlusion, hemodynamically significant stenosis, or dissection in the major cervical arteries. Assessment of stenosis of the internal carotid arteries is based on NASCET criteria. ACT 112: Negative or not required by law. Electronically signed by: Don Aden M.D. 07/03/2021 1:54 PM Brain MRI 07/03/21 15:43 MR brain wo con CLINICAL HISTORY: TIA vs. Stroke. Weakness and aphasia. COMPARISON STUDY: CT of the brain and CT of the brain from 07/03/2021. Previous MR from September 03, 2018 TECHNIQUE: Multiplanar multisequence images of the Brain were performed without IV contrast. Diffusion weighted imaging and ADC mapping was also performed. FINDINGS: Extra-axial space: There is no evidence for a subdural hematoma, There are no extra-axial fluid collections. Ventricles and cisterns: The ventricles are again mildly to moderately dilated bilaterally. There is no evidence for midline shift or mass effect. Parenchyma: There is no evidence for an acute hemorrhage or infarct. No acute diffusion abnormalities are noted on diffusion weighted imaging or ADC mapping. There is normal chiu-white differentiation. There is mild cerebral cortical atrophy present. There is bright signal seen on FLAIR weighted sequences within the centrum semiovale and periventricular white matter characteristic of remote small vessel disease. The sulci and gyri appear normal without effacement. The midline structures are unremarkable. The posterior fossa structures appear normal. There is no evidence for mass lesion. Osseous structures: The paranasal sinuses are well aerated. The mastoid air cells are well aerated. Soft tissues: No focal soft tissue abnormalities are identified. IMPRESSION: 1. No acute intracranial abnormalities. 2. Cerebral cortical atrophy and remote small vessel disease are again seen. ACT 112: Negative or not required by law. Electronically signed by: Jose Lozoya M.D. 07/03/2021 7:55 PM PG Care Time/CCT Total # of Minutes Spent Total Time Spent with Patient: Total time spent is greater than 50% in coordination of care (as documented) at patient's floor/unit and/or counseling patient: Coding Level of Care Code 86518 Subseq Hosp Care Lvl 3 Diagnoses Stroke-like symptom R29.90 BPPV (benign paroxysmal positional vertigo) H81.10 GERD (gastroesophageal reflux disease) K21.9 Diastolic CHF, chronic I50.32 HTN (hypertension) I10 Paroxysmal A-fib I48.0 Hypomagnesemia E83.42 Anemia D64.9 Swelling of lymph node R59.9
[2021-07-04] MEDS: ACETAMINOPHEN 500 MG TAB PO SCH ×2 (08:08→20:38)
[2021-07-04] MEDS: RIVAROXABAN 15 MG TAB PO SCH (08:09)
[2021-07-04] MEDS: FERROUS SULFATE 325 MG TAB PO SCH (08:10)
[2021-07-04] MEDS: lisinopril 2.5 MG TAB PO SCH (08:10)
[2021-07-04] MEDS: LORATADINE 10 MG TAB PO SCH (08:11)
[2021-07-04] MEDS ORDERED: NON-FORMULARY MEDICATION (Esomeprazole Magnesium 40 mg capsule,delayed release(DR/EC)) PO SCH (09:00)
[2021-07-04] MEDS: PANTOprazole 40 MG TAB PO SCH (09:15)
[2021-07-04 09:18] LABS: Iron 48 mcg/dl (35-175); Magnesium 2.2 mg/dl (1.7-2.4); Total Iron Binding Cap Calc 354 mcg/dl (250-450); Transferrin (FE) Percent Satur 14 % (20-50); Unsaturated Iron Binding Cap 306 mcg/dl (155-355)
[2021-07-04 09:38] LABS: Ferritin 121.2 ng/ml (8-388)
[2021-07-04 09:44] LABS: Folate (Folic Acid) > 22.30 ng/ml (>5.38)
[2021-07-04 09:45] LABS: Vitamin B12 391 pg/ml (180-914)
--- NOTE | 2021-07-04 12:52 | XCELERA ---
[id number]
--- NOTE | 2021-07-04 13:35 | Electrocardiogram Report ---
Test Reason : Blood Pressure : / mmHG Vent. Rate : 076 BPM Atrial Rate : 076 BPM P-R Int : 180 ms QRS Dur : 126 ms QT Int : 400 ms P-R-T Axes : 094 -28 021 degrees QTc Int : 450 ms Normal sinus rhythm Left ventricular hypertrophy with QRS widening Abnormal ECG When compared with ECG of 03-JUL-2021 13:45, No significant change was found Confirmed by Oscar Burns ([id number]) on 07/04/2021 1:34:52 PM Referred By: REFERRED SELF Confirmed By:Giancarlo Burns
[2021-07-04] MEDS ORDERED: SODIUM CHLORIDE 0.9% 500 ML IV SCH (15:15)
[2021-07-04] MEDS ORDERED: hydrALAZINE HCL 20 MG/ML VIAL IV PRN (15:35)
--- NOTE | 2021-07-04 15:53 | Ultrasound Report ---
US soft tissue neck CLINICAL HISTORY: Left cervical lymphadenopathy. COMPARISON STUDY: None. FINDINGS: Real-time sonographic imaging of the neck was performed with tour sales representative images submitte d. There is a 1.9 x 1.5 x 1.2 cm hypoechoic nodule within the left lateral mid neck which corresponds the patient's palpable abnormality. This likely represents a pathologically enlarged lymph node. No significant fatty hilum. The echotexture is slightly heterogeneous. There is a similar-appearing hypo echoic cervical lymph node measuring 1.4 x 1.2 x 0.8 cm. There is a left jugulodigastric lymph node m easuring 2.7 x 1.7 x 1.2 cm. No right cervical lymphadenopathy. IMPRESSION: Pathologic enlarged left cervical lymph nodes as described above. Ultrasound-guided fine -needle aspiration recommended for further evaluation ACT 112: Positive. There are findings on this exam that require communication between the performing entity and the patient following Patient Test Result Information Act ([place] Act 112) guidelines. Electronically signed by: Chema Bruno M.D. 07/04/2021 3:50 PM
[2021-07-04] MEDS: ASPIRIN 81 MG ECTAB PO SCH (16:40)
[2021-07-04] MEDS: DOCUSATE SODIUM/SENNA 50/8.6MG TAB PO SCH (16:40)
--- NOTE | 2021-07-04 16:51 | Electroencephalogram ---
EEG Procedure Note Date of Service July 04, 2021 Start / End Times Start Time: 12:52 PM End Time: 1:12 PM Referring Physician Yu Martinez PA-C History Stroke alert, TIA, evaluate for seizure activity Home Medication List Medication Instructions Recorded Confirmed Type esomeprazole magnesium 40 mg 40 mg PO QAM 10/31/18 07/03/21 History capsule,delayed release loratadine 10 mg tablet 10 mg PO QAM 10/31/18 07/03/21 History ferrous sulfate 325 mg (65 mg 325 mg PO QAM 12/03/18 07/03/21 History iron) tablet (iron) guaifenesin 600 mg tablet, 600 mg PO QAM PRN 12/03/18 07/03/21 History extended release 12 hr (Mucinex) atorvastatin 20 mg tablet 20 mg PO HS #30 tab 12/05/18 07/03/21 Rx meclizine 25 mg tablet 25 mg PO TID PRN #90 tab 01/04/19 07/03/21 Rx acetaminophen 500 mg capsule 1,000 mg PO BID 07/03/21 07/03/21 History celecoxib 200 mg capsule 200 mg PO QAM 07/03/21 07/03/21 History gabapentin 300 mg capsule 300 mg PO HS 07/03/21 07/03/21 History lisinopril 2.5 mg tablet 2.5 mg PO QAM 07/03/21 07/03/21 History rivaroxaban 20 mg tablet (Xarelto) 20 mg PO QAM 07/03/21 07/03/21 History tramadol 50 mg tablet 50 mg PO Q6H PRN 07/03/21 07/03/21 History vitamin B complex 1 cap PO QAM 07/03/21 07/03/21 History Inpatient Medication List Acetaminophen (Acetaminophen 500 Mg Tab) 1,000 mg PO BID NORBERTO Stop: 08/02/21 20:59 Last Admin: 07/04/21 08:08 Dose: 1,000 mg Documented by: [id number] Admin: 07/03/21 21:18 Dose: 1,000 mg Documented by: [id number] Aspirin (Aspirin 81 Mg Ectab) 81 mg PO QAM NORBERTO Stop: 08/03/21 15:29 Last Admin: 07/04/21 16:40 Dose: 81 mg Documented by: [id number] Atorvastatin Calcium (Atorvastatin 20 Mg Tab) 20 mg PO HS NORBERTO Stop: 08/02/21 20:59 Last Admin: 07/03/21 21:18 Dose: 20 mg Documented by: [id number] Ferrous Sulfate (Ferrous Sulfate 325 Mg Tab) [facility] [place] Stop: 08/03/21 08:59 Last Admin: 07/04/21 08:10 Dose: 325 mg Documented by: [id number] Gabapentin (Gabapentin 300 Mg Cap) 300 mg PO [facility] Stop: 08/02/21 20:59 Last Admin: 07/03/21 21:17 Dose: 300 mg Documented by: [id number] Sodium Chloride (Nss) 500 mls @ 80 mls/hr IV .Q6H15M [facility] Stop: 07/04/21 21:15 Last Admin: 07/04/21 16:42 Dose: 80 mls/hr Documented by: [id number] Lisinopril (Lisinopril 2.5 Mg Tab) 2.5 mg PO [facility] Stop: 08/03/21 08:59 Last Admin: 07/04/21 08:10 Dose: 2.5 mg Documented by: [id number] Loratadine (Loratadine 10 Mg Tab) 10 mg PO [facility] Stop: 08/03/21 08:59 Last Admin: 07/04/21 08:11 Dose: 10 mg Documented by: [id number] Pantoprazole Sodium (Pantoprazole 40 Mg Tab) 40 mg PO DAILY [facility] Stop: 08/02/21 16:59 Last Admin: 07/04/21 09:15 Dose: 40 mg Documented by: [id number] Admin: 07/03/21 18:30 Dose: 40 mg Documented by: [id number] Rivaroxaban (Rivaroxaban 15 Mg Tab) 15 mg PO [facility] Stop: 08/03/21 08:59 Last Admin: 07/04/21 08:09 Dose: 15 mg Documented by: [id number] Senna/Docusate Sodium (Docusate Sodium/Senna 50/8.6mg Tab) 1 tab PO [facility] Stop: 08/03/21 15:44 Last Admin: 07/04/21 16:40 Dose: 1 tab Documented by: [id number] Discontinued Medications Sodium Chloride (Nss 1000ml) 1,000 mls @ 50 mls/hr IV .Q20H [facility] Stop: 08/02/21 13:29 Last Infusion: 07/03/21 21:15 Dose: 0 mls/hr Documented by: [id number] Admin: 07/03/21 15:55 Dose: 50 mls/hr Documented by: [id number] Magnesium Sulfate/Dextrose (Magnesium Sulfate / D5w) 1 gm in 100 mls @ 50 mls/hr IV Q2H [facility] Stop: 07/04/21 00:29 Last Infusion: 07/04/21 02:04 Dose: 0 mls/hr Documented by: [id number] Admin: 07/03/21 23:51 Dose: 50 mls/hr Documented by: [id number] Infusion: 07/03/21 23:48 Dose: 50 mls/hr Documented by: [id number] Admin: 07/03/21 21:48 Dose: 50 mls/hr Documented by: [id number] Infusion: 07/03/21 21:20 Dose: 0 mls/hr Documented by: [id number] Admin: 07/03/21 18:48 Dose: 50 mls/hr Documented by: [id number] Infusion: 07/03/21 18:48 Dose: 50 mls/hr Documented by: [id number] Admin: 07/03/21 17:09 Dose: 50 mls/hr Documented by: [id number] Ioversol (Optiray 320 125ml) 120 ml IV ONCE ONE Stop: 07/03/21 13:42 Last Admin: 07/03/21 13:41 Dose: 120 ml Documented by: [id number] Description This is a 21 electrode EEG with a single channel dedicated to limited EKG. The electrodes were placed in accordance with the International 10-20 system. Predominant background rhythm consists of a mix of 10 Hz alpha and 6 Hz theta activity. There is a normal anterior to posterior organization. Photic stimulation is unremarkable. Hyperventilation is not performed. There is a frontal beta rhythm, a bit more prominent over the left. There is no focal slowing. There are no epileptiform abnormalities. Interpretation Mildly abnormal awake/drowsy EEG with evidence of generalized theta slowing suggestive of a nonspecific mild encephalopathy. No epileptiform abnormalities observed. [facility] EEG Procedure Codes Indication for Procedure (1) Stroke-like symptom: (2) Seizure-like activity: Neurology Neurology: [id number] EEG include record awake & drowsy
[2021-07-04] MEDS ORDERED: GADOBUTROL 65ML VIAL IV ONE (20:18)
[2021-07-04] MEDS: ATORVASTATIN 20 MG TAB PO SCH (20:37)
[2021-07-04] MEDS: GABAPENTIN 300 MG CAP PO SCH (20:38)
--- NOTE | 2021-07-04 21:14 | Magnetic Resonance Report ---
MR brain wo/w con CLINICAL HISTORY: r/o mass TECHNIQUE: Multiplanar and multisequence MR images of the brain were obtained prior to and following administration of gadolinium contrast. Comparison: Comparison is made to MRI brain 07/03/2021 FINDINGS: No abnormal restricted diffusion is identified. Foci of T2 and FLAIR hyperintensity are noted in the paraventricular areas consistent with chronic small vessel ischemic disease. Ex vacuo ventriculomegal y and sulcal enlargement is noted compatible with diffuse encephalomalacia. There are no masses, mass effect, or midline shift. No abnormal enhancement is seen. There is no evidence of acute intraparenc hymal hemorrhage. No extra axial fluid collections are seen. The corpus callosum, pituitary gland, an d cerebellar tonsils appear grossly unremarkable. Flow voids of the major intracranial arterial vessels are identified. The imaged portions of the para nasal sinuses, mastoid air cells, and orbits are unremarkable. IMPRESSION: No acute abnormalities and in particular no evidence of intracranial mass.. ACT 112: Negative or not required by law. Electronically signed by: Don Aden M.D. 07/04/2021 9:12 PM
[2021-07-05 00:08] LABS: Appearance Urine Clear (Clear); Bilirubin Urine Negative (Negative); Blood Urine Negative (Negative); Color Urine Yellow; Glucose Urine UA Negative (Negative); Ketones Urine Negative (Negative); Leukocyte Esterase Urine Negative (Negative); Nitrite Urine Negative (Negative); Protein Urine Negative (Negative); Specific Gravity Urine 1.012 (1.000-1.030); Urobilinogen Urine Negative (Negative)
[2021-07-05 06:19] LABS: Basophils # (auto) 0.08 K/uL (0-0.2); Eosinophils # (auto) 0.62 K/uL (0-0.5); Eosinophils % (auto) 7.9 %; Hematocrit (blood only) 28.7 % (42-52); Hemoglobin 9.5 g/dL (14.0-18.0); Immature Granulocytes # (auto) 0.01 K/uL (0.00-0.02); Immature Granulocytes % (auto) 0.1 %; Lymphocytes # (auto) 1.86 K/uL (1.2-3.4); Lymphocytes % (auto) 23.8 %; Mean Corpuscular Hgb Conc 33.1 g/dL (32-36); Mean Corpuscular Volume 99.7 fL (80-100); Mean Platelet Volume 10.1 fL (7.4-10.4); Monocytes # (auto) 0.73 K/uL (0.11-0.59); Monocytes % (auto) 9.3 %; Neutrophils # (auto) 4.53 K/uL (1.4-6.5); Neutrophils % (auto) 57.9 %; Platelet Count 310 K/uL (130-400); RDW Coefficient of Variation 13.2 % (11.5-14.5); RDW Standard Deviation 47.6 fL (36.4-46.3); Red Blood Count 2.88 M/uL (4.7-6.1); White Blood Count 7.83 K/uL (4.8-10.8)
[2021-07-05 06:37] LABS: BUN Creatinine Ratio 20.8 (10-20); Calcium 9.5 mg/dl (8.5-10.1); Creatinine Clr Calc Pharmacy 41.3 ml/min; Est GFR (African American) 64.9 ml/min; Magnesium 1.7 mg/dl (1.7-2.4); Potassium 4.1 mmol/L (3.5-5.1)
[2021-07-05] MEDS: ACETAMINOPHEN 500 MG TAB PO SCH (07:53)
[2021-07-05] MEDS: DOCUSATE SODIUM/SENNA 50/8.6MG TAB PO SCH (07:58)
[2021-07-05] MEDS: ASPIRIN 81 MG ECTAB PO SCH (07:58)
[2021-07-05] MEDS: PANTOprazole 40 MG TAB PO SCH (07:59)
[2021-07-05] MEDS: FERROUS SULFATE 325 MG TAB PO SCH (07:59)
[2021-07-05] MEDS: LORATADINE 10 MG TAB PO SCH (07:59)
[2021-07-05] MEDS: RIVAROXABAN 15 MG TAB PO SCH (07:59)
[2021-07-05] MEDS: lisinopril 2.5 MG TAB PO SCH (07:59)
[2021-07-05] MEDS ORDERED: MAGNESIUM OXIDE 400 MG TAB PO SCH (09:00)
--- NOTE | 2021-07-05 09:04 | Hospitalist Progress Note ---
Date of Service July 05, 2021 Assessment & Plan Admission and Anticipated Discharge Date Admission Date: July 04, 2021 Results & Data Results & Data ([facility]) Vital Signs (Past 12 Hours) Vital Signs Temp Pulse Pulse Resp BP Pulse Ox Pulse Ox 07/05/21 07:20 36.8 C 95 H 20 185/92 H 93 07/05/21 03:15 36.9 C 85 18 159/88 H 94 07/05/21 03:04 89 96 07/04/21 23:18 36.7 C 71 16 179/73 H 95 07/04/21 23:15 70 98 07/04/21 21:45 72 91 Laboratory Results 07/05/21 07/05/21 07/04/21 Range/Units 05:57 05:57 23:36 WBC 7.83 (4.8-10.8) K/uL RBC 2.88 L (4.7-6.1) M/uL Hgb 9.5 L (14.0-18.0) g/dL Hct 28.7 L (42-52) % MCV 99.7 (80-100) fL MCH 33.0 (25-34) pg MCHC 33.1 (32-36) g/dL RDW Std Deviation 47.6 H (36.4-46.3) fL RDW Coeff of Ally 13.2 (11.5-14.5) % Plt Count 310 (130-400) K/uL MPV 10.1 (7.4-10.4) fL Immature Gran % (Auto) 0.1 % Neut % (Auto) 57.9 % Lymph % (Auto) 23.8 % [place] % (Auto) 9.3 % Eos % (Auto) 7.9 % Baso % (Auto) 1.0 % Neut # (Auto) 4.53 (1.4-6.5) K/uL Lymph # (Auto) 1.86 (1.2-3.4) K/uL [place] # (Auto) 0.73 H (0.11-0.59) K/uL Eos # (Auto) 0.62 H (0-0.5) K/uL Baso # (Auto) 0.08 (0-0.2) K/uL Immature Gran # (Auto) 0.01 (0.00-0.02) K/uL Sodium 137 (136-145) mmol/L Potassium 4.1 (3.5-5.1) mmol/L Chloride 105 (98-107) mmol/L Carbon Dioxide 24 (21-32) mmol/L Anion Gap 8 (3-11) BUN 25 H (6-23) mg/dl Creatinine 1.20 (0.6-1.4) mg/dl Est Cr Clr Drug Dosing 41.3 ml/min Est GFR ( Amer) 64.9 ml/min Est GFR (Non-Af Amer) 56.0 ml/min BUN/Creatinine Ratio 20.8 H (10-20) Glucose 102 H (70-99(Fasting)) mg/dl POC Glucose (70-99) mg/dl Calcium 9.5 (8.5-10.1) mg/dl Magnesium 1.7 (1.7-2.4) mg/dl Iron (35-175) mcg/dl TIBC (250-450) mcg/dl Unsaturated IBC (155-355) mcg/dl Transferrin % Sat (20-50) % Ferritin (8-388) ng/ml Ammonia (18-72) umol/L Vitamin B12 (180-914) pg/ml Folate (>5.38) ng/ml Urine Color Yellow Urine Appearance Clear (Clear) Urine pH 6.0 (4.5-7.5) Ur Specific [place] 1.012 (1.000-1.030) Urine Protein Negative (Negative) Urine Glucose (UA) Negative (Negative) Urine Ketones Negative (Negative) Urine Blood Negative (Negative) Urine Nitrite Negative (Negative) Urine Bilirubin Negative (Negative) Urine Urobilinogen Negative (Negative) Ur Leukocyte Esterase Negative (Negative) 07/04/21 07/04/21 07/04/21 Range/Units 16:39 11:48 11:29 WBC (4.8-10.8) K/uL RBC (4.7-6.1) M/uL Hgb (14.0-18.0) g/dL Hct (42-52) % MCV (80-100) fL MCH (25-34) pg MCHC (32-36) g/dL RDW Std Deviation (36.4-46.3) fL RDW Coeff of Ally (11.5-14.5) % Plt Count (130-400) K/uL MPV (7.4-10.4) fL Immature Gran % (Auto) % Neut % (Auto) % Lymph % (Auto) % [place] % (Auto) % Eos % (Auto) % Baso % (Auto) % Neut # (Auto) (1.4-6.5) K/uL Lymph # (Auto) (1.2-3.4) K/uL [place] # (Auto) (0.11-0.59) K/uL Eos # (Auto) (0-0.5) K/uL Baso # (Auto) (0-0.2) K/uL Immature Gran # (Auto) (0.00-0.02) K/uL Sodium (136-145) mmol/L Potassium (3.5-5.1) mmol/L Chloride (98-107) mmol/L Carbon Dioxide (21-32) mmol/L Anion Gap (3-11) BUN (6-23) mg/dl Creatinine (0.6-1.4) mg/dl Est Cr Clr Drug Dosing ml/min Est GFR ( Amer) ml/min Est GFR (Non-Af Amer) ml/min BUN/Creatinine Ratio (10-20) Glucose (70-99(Fasting)) mg/dl POC Glucose 116 H 99 (70-99) mg/dl Calcium (8.5-10.1) mg/dl Magnesium (1.7-2.4) mg/dl Iron (35-175) mcg/dl TIBC (250-450) mcg/dl Unsaturated IBC (155-355) mcg/dl Transferrin % Sat (20-50) % Ferritin (8-388) ng/ml Ammonia 25.0 (18-72) umol/L Vitamin B12 (180-914) pg/ml Folate (>5.38) ng/ml Urine Color Urine Appearance (Clear) Urine pH (4.5-7.5) Ur Specific [place] (1.000-1.030) Urine Protein (Negative) Urine Glucose (UA) (Negative) Urine Ketones (Negative) Urine Blood (Negative) Urine Nitrite (Negative) Urine Bilirubin (Negative) Urine Urobilinogen (Negative) Ur Leukocyte Esterase (Negative) 07/04/21 07/04/21 07/04/21 Range/Units 08:21 08:21 08:21 WBC (4.8-10.8) K/uL RBC (4.7-6.1) M/uL Hgb (14.0-18.0) g/dL Hct (42-52) % MCV (80-100) fL MCH (25-34) pg MCHC (32-36) g/dL RDW Std Deviation (36.4-46.3) fL RDW Coeff of Ally (11.5-14.5) % Plt Count (130-400) K/uL MPV (7.4-10.4) fL Immature Gran % (Auto) % Neut % (Auto) % Lymph % (Auto) % [place] % (Auto) % Eos % (Auto) % Baso % (Auto) % Neut # (Auto) (1.4-6.5) K/uL Lymph # (Auto) (1.2-3.4) K/uL [place] # (Auto) (0.11-0.59) K/uL Eos # (Auto) (0-0.5) K/uL Baso # (Auto) (0-0.2) K/uL Immature Gran # (Auto) (0.00-0.02) K/uL Sodium (136-145) mmol/L Potassium (3.5-5.1) mmol/L Chloride (98-107) mmol/L Carbon Dioxide (21-32) mmol/L Anion Gap (3-11) BUN (6-23) mg/dl Creatinine (0.6-1.4) mg/dl Est Cr Clr Drug Dosing ml/min Est GFR ( Amer) ml/min Est GFR (Non-Af Amer) ml/min BUN/Creatinine Ratio (10-20) Glucose (70-99(Fasting)) mg/dl POC Glucose (70-99) mg/dl Calcium (8.5-10.1) mg/dl Magnesium 2.2 (1.7-2.4) mg/dl Iron 48 (35-175) mcg/dl TIBC 354 (250-450) mcg/dl Unsaturated IBC 306 (155-355) mcg/dl Transferrin % Sat 14 L (20-50) % Ferritin 121.2 (8-388) ng/ml Ammonia (18-72) umol/L Vitamin B12 391 (180-914) pg/ml Folate > 22.30 (>5.38) ng/ml Urine Color Urine Appearance (Clear) Urine pH (4.5-7.5) Ur Specific [place] (1.000-1.030) Urine Protein (Negative) Urine Glucose (UA) (Negative) Urine Ketones (Negative) Urine Blood (Negative) Urine Nitrite (Negative) Urine Bilirubin (Negative) Urine Urobilinogen (Negative) Ur Leukocyte Esterase (Negative) Diagnostic Findings Brain MRI 07/04/21 12:51 MR brain wo/w con CLINICAL HISTORY: r/o mass TECHNIQUE: Multiplanar and multisequence MR images of the brain were obtained prior to and following administration of gadolinium contrast. Comparison: Comparison is made to MRI brain 07/03/2021 FINDINGS: No abnormal restricted diffusion is identified. Foci of T2 and FLAIR hyperintensity are noted in the paraventricular areas consistent with chronic small vessel ischemic disease. Ex vacuo ventriculomegaly and sulcal enlargement is noted compatible with diffuse encephalomalacia. There are no masses, mass effect, or midline shift. No abnormal enhancement is seen. There is no evidence of acute intraparenchymal hemorrhage. No extra axial fluid collections are seen. The corpus callosum, pituitary gland, and cerebellar tonsils appear grossly unremarkable. Flow voids of the major intracranial arterial vessels are identified. The imaged portions of the paranasal sinuses, mastoid air cells, and orbits are unremarkable. IMPRESSION: No acute abnormalities and in particular no evidence of intracranial mass.. ACT 112: Negative or not required by law. Electronically signed by: Don Aden M.D. 07/04/2021 9:12 PM Soft Tissue Ultrasound 07/04/21 12:52 US soft tissue neck CLINICAL HISTORY: Left cervical lymphadenopathy. COMPARISON STUDY: None. FINDINGS: Real-time sonographic imaging of the neck was performed with packaging sales representative images submitted. There is a 1.9 x 1.5 x 1.2 cm hypoechoic nodule within the left lateral mid neck which corresponds the patient's palpable abnormality. This likely represents a pathologically enlarged lymph node. No significant fatty hilum. The echotexture is slightly heterogeneous. There is a similar-appearing hypoechoic cervical lymph node measuring 1.4 x 1.2 x 0.8 cm. There is a left jugulodigastric lymph node measuring 2.7 x 1.7 x 1.2 cm. No right cervical lymphadenopathy. IMPRESSION: Pathologic enlarged left cervical lymph nodes as described above. Ultrasound-guided fine-needle aspiration recommended for further evaluation ACT 112: Positive. There are findings on this exam that require communication between the performing entity and the patient following Patient Test Result Information Act ([place] Act 112) guidelines. Electronically signed by: Chema Bruno M.D. 07/04/2021 3:50 PM PG Care Time/CCT Total # of Minutes Spent Total Time Spent with Patient: Total time spent is greater than 50% in coordination of care (as documented) at patient's floor/unit and/or counseling patient: Coding
--- NOTE | 2021-07-05 09:08 | Neurology Consultation ---
Date of Consultation July 05, 2021 Assessment & Plan (1) Stroke-like symptom: (2) Seizure-like activity: (3) Vision disturbance: Transient vision disturbance, bright lights moving towards him, central part of the visual field, both eyes, occurring yesterday morning, primarily upon standing up or getting up out of bed, persisting for several minutes, and occurring with associated nausea and dizziness. Second similar episode occurred later that morning, while sitting up at a table eating breakfast. Was observed at that time by a visiting home nurse to possibly have some left-sided weakness and change in speech worrisome for possible stroke. No specific deficits documented during his emergency department evaluation. Did have a telestroke assessment although this report is not available at this point in time. TPA was not administered although a search for possible metabolic causes was recommended as well as an EEG. Patient has had a thorough stroke evaluation including 2 brain MRIs which are both negative for acute or subacute infarct. His EEG was negative for epileptif orm abnormalities. Patient's CT angiography of the head and neck did not reveal any significant vascular lesions. He does have an incidental moderate stenosis at the origin of the right vertebral artery which has been identified previously. I doubt this vascular lesion is clinically significant. He does have a history of atrial fibrillation and has been taking Xarelto. He also informs me that he takes daily low-dose aspirin although this medication does not appear on his list. He also takes atorvastatin. His lipids appear to be within normal limits and he has an LDL of only 57. Patient's brain MRI does reveal generalized atrophy and chronic small vessel ischemic disease. He does not appear to have any clinical signs or symptoms suggestive of a significant dementia, parkinsonism, or normal pressure hydrocephalus. His chief complaint of bright lights moving towards him would be atypical for stroke or TIA. Seizure has been considered although his EEG was negative for epileptiform abnormalities. I would not recommend starting an anticonvulsant at this point in time. Patient should have an outpatient ophthalmology evaluation given his transient visual complaint. Yet, the reported vision complaint affected both eyes according to the patient which would oftentimes suggest a brain or retrochiasmal localization. Furthermore, he does not give symptoms suggestive of vasculitis or giant cell arteritis such as jaw claudication with chewing more than 2 to 3 minutes, shoulder girdle myalgia, known history of polymyalgia rheumatica, scalp tenderness, headache, etc. Nonetheless, it may be reasonable to check an ESR and CRP. If his ESR is significantly elevated, greater than 70, would consider obtaining a temporal artery biopsy. If the above ESR and CRP are not suggestive of significant pathology, I would have no further immediate recommendations and I would suggest that he follow-up with ophthalmology as an outpatient. History of Present Illness Reason for Consultation: concern for stroke Requesting Physician: Yu Martinez PA-C Attending Physician: Shy Saucedo MD History of Present Illness The patient is an 80-year-old male with a chief complaint of vision changes. He indicates that he awoke from sleep yesterday morning and upon standing up out of bed, had the perception of multiple lights moving towards him. The lights were for the most part in the center of his visual field, affecting both eyes. He recalls having some associated dizziness and nausea but does not recall any specific weakness. He indicates that he then went to the kitchen to have breakfast and experienced another similar episode of bright lights moving towards him. He does not recall any other specific symptoms although at that point in time, a visiting nurse, who according to the patient comes about 1 time per month, happened to be there at that time and noticed that something seemed wrong. She expressed some concern that he may be having a stroke and contacted emergency medical personnel. Again, the patient does not really recall any other symptomatology other than the above vision disturbance and associated dizziness and nausea. However, the emergency department record indicates that the visiting nurse observed some left-sided weakness involving the face, arm and leg and his speech was somewhat garbled, he may have had some difficulty with word finding as well. It does not look like any focal deficits were identified by the examining physician in the emergency department, however. He did have a telestroke consultation although this report is not available at this time. According to emergency department documentation, however. There was potential concern for possible metabolic cause versus seizure and they had recommended an EEG. This morning, the patient reports that he is feeling fine and has not had any recurrence of vision disturbance, dizziness or nausea. He has not had any difficulty with weakness or motor control of the hands or legs. No difficulty with speech or swallowing. He denies headache. Past medical history is also notable for benign positional paroxysmal vertigo, atrial fibrillation, on Xarelto, history of heart failure, right vertebral artery stenosis, total knee arthroplasty. Allergies Allergy/AdvReac Type Severity Reaction Status Date / Time No Known Allergies Allergy Unverified 07/03/21 15:12 Home Medications Medication Instructions Recorded Confirmed Type esomeprazole magnesium 40 mg 40 mg PO QAM 10/31/18 07/03/21 History capsule,delayed release loratadine 10 mg tablet 10 mg PO QAM 10/31/18 07/03/21 History ferrous sulfate 325 mg (65 mg 325 mg PO QAM 12/03/18 07/03/21 History iron) tablet (iron) guaifenesin 600 mg tablet, 600 mg PO QAM PRN 12/03/18 07/03/21 History extended release 12 hr (Mucinex) atorvastatin 20 mg tablet 20 mg PO HS #30 tab 12/05/18 07/03/21 Rx meclizine 25 mg tablet 25 mg PO TID PRN #90 tab 01/04/19 07/03/21 Rx acetaminophen 500 mg capsule 1,000 mg PO BID 07/03/21 07/03/21 History celecoxib 200 mg capsule 200 mg PO QAM 07/03/21 07/03/21 History gabapentin 300 mg capsule 300 mg PO HS 07/03/21 07/03/21 History lisinopril 2.5 mg tablet 2.5 mg PO QAM 07/03/21 07/03/21 History rivaroxaban 20 mg tablet (Xarelto) 20 mg PO QAM 07/03/21 07/03/21 History tramadol 50 mg tablet 50 mg PO Q6H PRN 07/03/21 07/03/21 History vitamin B complex 1 cap PO QAM 07/03/21 07/03/21 History Patient History Medical History (Updated 07/05/21 @ 09:15 by Luca Sanders MD) BPPV (benign paroxysmal positional vertigo) Diastolic CHF, chronic GERD (gastroesophageal reflux disease) Symptomatic vertebral artery stenosis 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 Surgical History History of vasectomy Family History Other No significant past medical history Social History Smoking Status: Former smoker Second Hand Exposure: No; Do You Dip or Chew Tobacco: No; Tobacco Cessation Education Requested by Patient: No Hx Alcohol Use: No Hx Substance Use: No Preferred Language: Italian Communication Ability: Effective Satellite Dish Repairer Required: No Beliefs That Will Affect Care: None marital status: Current Living Situation: Spouse Feels Safe at Home: Yes Safety Concerns: Feels Safe At This Time Assistive Devices: Walker Review of Systems Constitutional: no fever and no chills Eyes: as per Subjective / HPI; no blind spots, no diplopia and no eye pain Ear, Nose, Mouth, Throat: no ear pain and no hearing loss Respiratory: no cough and no dyspnea Cardiovascular: no chest pain and no palpitations Gastrointestinal: no constipation and no diarrhea/loose stools Genitourinary: no urinary incontinence or no urinary urgency Musculoskeletal: no myalgia and no muscle weakness Integumentary: no rash and no lesions Neurologic: as per Subjective / HPI; no gait abnormality, no unsteadiness, no localized weakness, no loss of sensation, no abnormal movements, no seizure-like activity, no syncope and no headache(s) Psychiatric: no behavioral changes, no depression and no anxiety Hematologic / Lymphatic: no easy bruising and no lymphadenopathy Exam (Neuro) Constitutional: well developed and well nourished; no acute distress Eyes: normal visual lopez by confrontation, PERRL, normal accommodation and EOM intact bilaterally; no fundoscopic abnormality, no nystagmus and no papilledema Cardiovascular: Vessels: normal carotid upstroke; no carotid bruit Neurologic: Oriented to:: Person, Place and Time Memory: Short Term Intact and Remote Intact Attention: Span Intact and Concentration Intact Language: Naming Objects and Repeating Phrases Speech Fluency: negative Dysarthria Speech Aphasia: negative Aphasia Fund of Knowledge: Current Events, Past History and Vocabulary Cranial Nerves: Normal II (Visual lopez full to confrontation, visual acuity normal), III, IV, (Pupils equal round reactive to light and accommodation, eye movements normal), V (Facial sensation intact), VII (There is no facial droop or weakness), VIII (Hearing intact), IX, X (Palate elevates to midline), XI (Shoulder shrug intact) and XII (Tongue protrudes to midline) Motor Strength: Normal Lower Extremities and Normal Upper Extremities; negative Pronator Drift Motor Tone: Normal Lower Extremities and Normal Upper Extremities Muscle Bulk/Involuntary Movements: No Involuntary Movements; negative Muscle Atrophy Sensation: Light Touch Intact, Pain/Temperature Intact, Vibration Intact and Proprioception Intact Coordination: Normal; negative Limited Balance, Dysdiadochokinesia, Finger-Nose Abnormal or Heel-Story Abnormal Deep Tendon Reflexes: Rt Triceps: 2+, Lt Tr iceps: 2+, Rt Biceps: 2+, Lt Biceps: 2+, Rt Brachioradialis: 1+, Lt Brachioradialis: 1+, Rt Patellar: 1+, Lt Patellar: 1+, Rt Ankle: 1+ and Lt Ankle: 1+ Special Tests: negative Babinski Present Gait: Normal Station and Gait Results & Data ([facility]) Vital Signs (Past 12 Hours) Vital Signs Temp Pulse Pulse Resp BP Pulse Ox Pulse Ox 07/05/21 07:20 36.8 C 95 H 20 185/92 H 93 07/05/21 03:15 36.9 C 85 18 159/88 H 94 07/05/21 03:04 89 96 07/04/21 23:18 36.7 C 71 16 179/73 H 95 07/04/21 23:15 70 98 07/04/21 21:45 72 91 Laboratory Results WBC 7.83, hemoglobin 9.5, hematocrit 28.7, MCV 99.7, platelet count 310, sodium 137, potassium 4.1, BUN 25, creatinine 1.20, glucose 102, calcium 9.5, magnesium 1.7, ammonia 25, triglycerides 120, cholesterol 118, LDL 57, VLDL 24, HDL 37, vitamin B12 391, folate greater than 22.[address] of the head negative for hemorrhage or acute process, there was atrophy and chronic small vessel ischemic disease. CT angiography of the head and neck revealed a dominant left vertebral artery and was otherwise negative for occlusion, stenosis, aneurysm, dissection within the major vessels of the head or neck. (A CTA completed in October 2018 has suggested a moderate focal narrowing at the origin of the right vertebral artery.) Brain MRI completed July 03, day of presentation, was negative for acute or subacute infarct. Again noted was cerebral cortical atrophy and chronic small vessel ischemic disease. A follow-up MRI was completed the following day, July 04, 2021. Again, no evidence of acute or subacute stroke. Generalized atrophy and chronic small vessel ischemic change again observed. I reviewed the images as well as the radiologist's interpretation of these tests. No areas of restricted diffusion on diffusion-weighted imaging to suggest acute or subacute ischemic change. No evidence of blooming artifact on susceptibility weighted imaging. There is a moderate degree of generalized atrophy, cortical and central, element of hydrocephalus ex vacuo appreciated. Moderate bilateral hippocampal atrophy noted as well. There is periventricular and subcortical chronic cerebrovascular change. Echocardiogram completed yesterday revealed normal left ventricular systolic function, borderline left atrial enlargement, no interatrial shunt, mild to moderate tricuspid regurgitation, borderline aortic root dilatation, elevated right ventricular systolic pressure. An electrocardiogram completed July 04 revealed a normal sinus rhythm with left ventricular hypertrophy and QRS widening. An ECG completed July 03 also revealed a normal sinus rhythm with left ventricular hypertrophy and QRS widening. EEG completed yesterday revealed mild slowing suggestive of a mild nonspecific encephalopathy. No epileptiform abnormalities identified. Coding Level of Care Code 77229 Initial Inpt Care Lvl 3 Diagnoses Stroke-like symptom R29.90 Seizure-like activity R56.9 Vision disturbance H53.9
[2021-07-05] MEDS ORDERED: METOPROLOL TARTRATE 25 MG TAB PO SCH ×2 (09:45)
--- NOTE | 2021-07-05 12:01 | Discharge Summary ---
Date of Service July 05, 2021 Admission HPI Per Admitting Provider 80 YOM with past medical history of: BPPV, Afib (diagnosed at [facility] [place] ~year ago- on Xarelto), remote history of heart failure at that time as well, right vertebral artery stenosis, total knee replacement. Patient brought in via EMS today for as stroke alert with symptoms onset around 1130 with worsening noted at 12:15, and symptoms mostly resolved on arrival. He was reported as NIHSS-0, negative CTA head, and neck. Deemed not a thrombolytic candidate. Patient is accompanied by his daughter and . reports that the patient got up around 11 today and called down for her to help him with his walker coming down the steps, he normally does this himself. She reports that he said he just did not feel right. The patient endorsed that he was having some dizziness with small little flashes in his vision. He made it down the steps a little slower than normal, and sat down to get some breakfast. He has a home health nurse that comes over about once a month and happened to come in on this day. She evaluated Matthew and during that time he had 2 episodes of the flashing and dizziness associated with him blankly staring at them. This lasted a few minutes, they called EMS- around 12:15 this started again with worsening of his mentation and associated with left sided weakness, slurring of speech, and decreased recollection of the event when it resolved. They believe that one lasted ~3-5 minutes. He felt better when EMS got there but remained with left sided weakness and slurring of speech. The patient has some loss of memory from this morning as well as mild cognitive delay, which is reported new for him. Patient does have long standing history of BPPV for which he takes a meclizine daily, patient and his both report that today symptoms were new. The patient did recently have his knee replaced in May and was placed on Tramadol and Celebrex as his only new medications. He rarely takes the Tramadol by report. For his Afib history, will attempt to get records from [place]. He has not followed by a sales and in home delivery specialist and appears to not seen his PCP since 2019- confirmed with they have not been there since then. COVID test on admission is: NEGATIVE Admission Exam Per Admitting Provider PHYSICAL EXAM: General: awake, alert, Head: Normocephalic, atraumatic Neuro: AAO x 3, speech clear, but mildly garbled and "thick", slow to respond to questions, right 5/5 upper and lower strength, left 4/5 strength upper and lower ext, sensation intact overall, mild dysarthria, no visual skew or visual field loss appreciated, no ataxia, decrease coordination with left arm with finger to nose. Chest: equal rise and fall of the chest, no accessory muscle use, no heaves or thrills, Clear to auscultation, on room air, Cardiac: Regular rate and rhythm, telemetry reviewed, skin warm dry, cap refill <3 seconds, peripheral pulses +2 no JVD, no murmur, no JVD, no edema GI: NABS x 4 quadrants, soft, nontender to palpation, no rebound, guarding or tenderness : Spontaneously voiding, no pain, no CVA tenderness, Extremities: Normal inspection, no peripheral edema or erythema, calfs n ontender to palpation Psych: Normal mood and affect Skin: no rash or erythema Principal Diagnosis TIA, stroke like symptoms, visual disturbance Discharge Exam General: WD/WN male resting in bed upon arrival, no acute distress alert, oriented to person, place, time, no confusion, no slurred speech, no pronator drift, finger-finger testing without issue, gait not tested but observed ambulating with walker without difficulty due to recent TKA, moves all extremities, following commands HEENT: pupils equal and reactive to light, trachea midline without deviation L sided lymphadenopathy, palpable ~2cm mobile lymph node, non-painful, non- tender Resp: CTAB, no w/c/r, on room air SpO2 95% CV: RRR, +murmur, no edema, calves non-tender GI: +BS, soft, non-tender, no guarding/rebound : no Sosa MSK: moves all extremities, strength equal, surgical incision from recent TKA almost completely heeled, non-tender, NVI Neuro: CN intact grossly, sensation intact, no dysarthria, no visual field cut Psych: AOX3, pleasant and cooperative Skin: no obvious rashes/lesions Discharge Data Allergies Allergy/AdvReac Type Severity Reaction Status Date / Time No Known Allergies Allergy Unverified 07/03/21 15:12 Consultations 07/03/21 14:53 ED Decision to Admit Stat 07/03/21 15:32 ED Decision to Admit Stat 07/04/21 12:50 Consult Neurology Routine Ordered Studies Chest X-Ray 07/03/21 13:28 XR chest 1V portable CLINICAL HISTORY: Stroke Like Symptoms. Evaluate cardiopulmonary status. COMPARISON STUDY: 12/21/2018 TECHNIQUE: 1 view of the chest FINDINGS: Single frontal view of the chest demonstrates the heart to again be enlarged. The lungs are clear of alveolar opacities. There is no evidence for pleural effusion. There is no evidence for vascular congestion. There is no acute osseous pathology. IMPRESSION: 1. No acute cardiopulmonary disease. ACT 112: Negative or not required by law. Electronically signed by: Jose Lozoya M.D. 07/03/2021 1:[address] 07/03/21 13:28 CT head/brain wo con CLINICAL HISTORY: Stroke Like Symptoms . Left-sided weakness and difficulty with speech. COMPARISON STUDY: 12/03/2018 CT DOSE: TECHNIQUE: Standard CT of the Brain was performed without IV contrast. A dose lowering technique was utilized adhering to the principles of ALARA. FINDINGS: Extraaxial space: There is no evidence for subdural hematoma. There are no extra-axial fluid collections. Ventricles and cisterns: The ventricles are mildly to moderately dilated bilaterally. There is no evidence for midline shift or mass effect. Parenchyma: There is no subarachnoid or intraparenchymal hemorrhage. There is no evidence for an acute infarct or cerebral edema. There is mild cerebral cortical atrophy and decreased attenuation in the periventricular white matter repres enting remote small vessel disease. There are no gross mass lesions. Osseous structures: There is no evidence for an acute fracture. The visualized paranasal sinuses are clear. The mastoid air cells are clear bilaterally. Soft tissues: There is no evidence for focal soft tissue swelling. IMPRESSION: 1. No acute intracerebral pathology. 2. Cerebral cortical atrophy and remote small vessel disease. ACT 112: Negative or not required by law. Electronically signed by: Jose Lozoya M.D. 07/03/2021 1:46 PM Head CTA 07/03/21 13:28 CT angio head w con, CT angio neck with con CLINICAL HISTORY: Stroke Like Symptoms TECHNIQUE: CT angiography of the head and neck was performed following intravenous administration of iodinated contrast. Coronal and sagittal MIPS were obtained from the axial data set and were submitted for review. Automated dose lowering techniques and/or adjustment according to patient size were utilized for this examination. All measurements were calculated based on NASCET criteria. Comparison: None available at the time of this dictation. FINDINGS: Lungs and soft tissues are unremarkable. CTA Neck: A 3 vessel aortic arch is shown. There is no significant atherosclerotic plaque in the aortic arch or the origins of the innominate, left common carotid, and left subclavian arteries. The common carotid, external carotid, cervical segments of the internal carotid arteries, and the cervical segments of the vertebral arteries are patent without hemodynamically significant stenosis. The left vertebral artery is dominant. Tortuosity near the origin is seen. CTA Head: The anterior and posterior cerebral circulations are patent. No hemodynamically significant stenosis, aneurysm, dissection, or arteriovenous malformation is shown. Atherosclerotic disease is noted. IMPRESSION: 1. No occlusion, hemodynamically significant stenosis, aneurysm, dissection, or arteriovenous malformation in the major intracranial arteries. 2. No occlusion, hemodynamically significant stenosis, or dissection in the major cervical arteries. Assessment of stenosis of the internal carotid arteries is based on NASCET criteria. ACT 112: Negative or not required by law. Electronically signed by: Don Aden M.D. 07/03/2021 1:54 PM Neck CTA 07/03/21 13:28 CT angio head w con, CT angio neck with con CLINICAL HISTORY: Stroke Like Symptoms TECHNIQUE: CT angiography of the head and neck was performed following intravenous administration of iodinated contrast. Coronal and sagittal MIPS were obtained from the axial data set and were submitted for review. Automated dose lowering techniques and/or adjustment according to patient size were utilized for this examination. All measurements were calculated based on NASCET criteria. Comparison: None available at the time of this dictation. FINDINGS: Lungs and soft tissues are unremarkable. CTA Neck: A 3 vessel aortic arch is shown. There is no significant atherosclerotic plaque in the aortic arch or the origins of the innominate, left common carotid, and left subclavian arteries. The common carotid, external carotid, cervical segments of the internal carotid arteries, and the cervical segments of the vertebral arteries are patent without hemodynamically significant stenosis. The left vertebral artery is dominant. Tortuosity near the origin is seen. CTA Head: The anterior and posterior cerebral circulations are patent. No hemodynamically significant stenosis, aneurysm, dissection, or arteriovenous malformation is shown. Atherosclerotic disease is noted. IMPRESSION: 1. No occlusion, hemodynamically significant stenosis, aneurysm, dissection, or arteriovenous malformation in the major intracranial arteries. 2. No occlusion, hemodynamically significant stenosis, or dissection in the major cervical arteries. Assessment of stenosis of the internal carotid arteries is based on NASCET criteria. ACT 112: Negative or not required by law. Electronically signed by: Don Aden M.D. 07/03/2021 1:54 PM Brain MRI 07/03/21 15:43 MR brain wo con CLINICAL HISTORY: TIA vs. Stroke. Weakness and aphasia. COMPARISON STUDY: CT of the brain and CT of the brain from 07/03/2021. Previous MR from September 03, 2018 TECHNIQUE: Multiplanar multisequence images of the Brain were performed without IV contrast. Diffusion weighted imaging and ADC mapping was also performed. FINDINGS: Extra-axial space: There is no evidence for a subdural hematoma, There are no extra-axial fluid collections. Ventricles and cisterns: The ventricles are again mildly to moderately dilated bilaterally. There is no evidence for midline shift or mass effect. Parenchyma: There is no evidence for an acute hemorrhage or infarct. No acute diffusion abnormalities are noted on diffusion weighted imaging or ADC mapping. There is normal chiu-white differentiation. There is mild cerebral cortical atrophy present. There is bright signal seen on FLAIR weighted sequences within the centrum semiovale and periventricular white matter characteristic of remote small vessel disease. The sulci and gyri appear normal without effacement. The midline structures are unremarkable. The posterior fossa structures appear normal. There is no evidence for mass lesion. Osseous structures: The paranasal sinuses are well aerated. The mastoid air cells are well aerated. Soft tissues: No focal soft tissue abnormalities are identified. IMPRESSION: 1. No acute intracranial abnormalities. 2. Cerebral cortical atrophy and remote small vessel disease are again seen. ACT 112: Negative or not required by law. Electronically signed by: Jose Lozoya M.D. 07/03/2021 7:55 PM Brain MRI 07/04/21 12:51 MR brain wo/w con CLINICAL HISTORY: r/o mass TECHNIQUE: Multiplanar and multisequence MR images of the brain were obtained prior to and following administration of gadolinium contrast. Comparison: Comparison is made to MRI brain 07/03/2021 FINDINGS: No abnormal restricted diffusion is identified. Foci of T2 and FLAIR hyperintensity are noted in the paraventricular areas consistent with chronic small vessel ischemic disease. Ex vacuo ventriculomegaly and sulcal enlargement is noted compatible with diffuse encephalomalacia. There are no masses, mass effect, or midline shift. No abnormal enhancement is seen. There is no evidence of acute intraparenchymal hemorrhage. No extra axial fluid collections are seen. The corpus callosum, pituitary gland, and cerebellar tonsils appear grossly unremarkable. Flow voids of the major intracranial arterial vessels are identified. The imaged portions of the paranasal sinuses, mastoid air cells, and orbits are unremarkable. IMPRESSION: No acute abnormalities and in particular no evidence of intracranial mass.. ACT 112: Negative or not required by law. Electronically signed by: Don Aden M.D. 07/04/2021 9:12 PM ECHOCARDIOGRAM 07/04/2021 Left ventricular systolic function is normal. Borderline left atrial enlargement. Injection of contrast documented no interatrial shunt. There is mild to moderate tricuspid regurgitation. Borderline aortic root dilatation. RVSP elevated at 40-50mmHg Soft Tissue Ultrasound 07/04/21 12:52 US soft tissue neck CLINICAL HISTORY: Left cervical lymphadenopathy. COMPARISON STUDY: None. FINDINGS: Real-time sonographic imaging of the neck was performed with practice representative images submitted. There is a 1.9 x 1.5 x 1.2 cm hypoechoic nodule within the left lateral mid neck which corresponds the patient's palpable abnormality. This likely represents a pathologically enlarged lymph node. No significant fatty hilum. The echotexture is slightly heterogeneous. There is a similar-appearing hypoechoic cervical lymph node measuring 1.4 x 1.2 x 0.8 cm. There is a left jugulodigastric lymph node measuring 2.7 x 1.7 x 1.2 cm. No right cervical lymphadenopathy. IMPRESSION: Pathologic enlarged left cervical lymph nodes as described above. Ultrasound-guided fine-needle aspiration recommended for further evaluation ACT 112: Positive. There are findings on this exam that require communication between the performing entity and the patient following Patient Test Result Information Act ([place] Act 112) guidelines. Electronically signed by: Chema Bruno M.D. 07/04/2021 3:50 PM Hospital Course (1) Stroke-like symptom: 80 YOM with stroke like symptom onset as per HPI --> L sided weakness, garbled/speech, blank stares, flashing lights/visual disturbance, pre-syncope Hx smoker, afib, on xarelto BP was elevated on admission, diastolic >100, could have been TIA, however will obtain further imaging as outlined: WBC wnl, afebrile NIHSS 0 (1 on admission) GCS 15 CTA Head/neck NEGATIVE, no mention of prior noted R vertebral artery stenosis MRI brain w/o contrast NEGATIVE for CVA MRI brain WITH contrast done to r/o mass NEGATIVE EEG without epileptiform abnormalities ECHO WITHOUT evidence for shunt A1c 5.1 Lipid panel -- TG 120, cholesterol 118, LDL 57, HDL 37 and continues on atorvastatin 20mg Neurology consulted ESR/CRP without elevation to suggest GCA F/u ophthlalmology outpatient given visual disturbances [facility] Continue Xarelto for hx afib but was NSR on monitor but did have elevations in HR "sinus arrhythmia" to 140/150s -- started metoprolol 25mg BID as well (BPs elevated) and discussed with and she believes he was to be taking this at home as prior medication was sent for metoprolol 50mg tablets in system To resume ASA 81mg daily. Discussed avoidance of NSAIDs/further NSAIDs given by ortho for recent TKA to prevent bleeding --> On PPI at home. Also sent PO rx mag oxide given low on admission, repleted but was low normal on repeat to prevent hypomagnesemia in patient with hx afib Cr was 1.47 on admission. Held ILDEFONSO. IVF provided (had positive orthostatics), improved following and Cr normalized with resumption of medications PT/OT/SPeech consulted while inpatient (2) HTN (hypertension): Elevated to 200/114 in 2019 with similar issues On admission, BP was 157/76 and also reading 139/102 Typically maintained on lisinopril 2.5mg daily but upon review appears should be on metoprolol --> started metoprolol 25mg BID and can f/u with PCP/monitor BPs at home BP 132/72 prior to discharge (3) Hypomagnesemia: 1.3 on admission, ?2nd to PPI use 4gm IV ordered --> repeat wnl but will monitor to ensure stable Mag 1.7 prior to discharge, sent on PO mag oxide supplementation to prevent in future (4) Paroxysmal A-fib: hx of, worked up at [place] remains on xarelto (also on for TKA done in May by Dr Jason Goodwin in [place]) metoprolol as above given elevated HR but not in fib on monitor for prevention --> Discussed follow up with Mr Bay this upcoming week to review dosing/consideration for metoprolol succinate for long acting control 70-80s today on monitor (5) BPPV (benign paroxysmal positional vertigo): As above- continue with Meclizine prn (6) GERD (gastroesophageal reflux disease): On esomeprazole 40mg daily [facility], utilzing protonix 40mg daily while inpatient --> On celecoxib for knees/recent replacement and stated almost done and planning to stop. Utilize tylenol for pain Mag ox rx sent at discharge as above (7) Diastolic CHF, chronic: in history and reported by noted when he was treated for afib at [facility] ECHO as above -- On lisinopril 2.5mg daily, no diuretics or edema at this time. Echo w/ elevated R sided pressures, consider diuretics if develops edema/sob but none reported and can follow up with PCP (8) Anemia: Hgb 9.9 on admission, normocytic Per , recent dx iron deficiency anemia (also recent TKA as above) and on NSAID/AC, and placed on daily supplementation Hgb stable on repeat Iron studies obtained, acceptable. B12 low normal, consider PO supp at discharge vs MVI Folate wnl no need to check fecal occult as on daily iron supplmentation post-operatively F/u PCP Rec'd stopping his NSAIDs from ortho and avoid NSAID use in future to prevent bleeding given Xarelto/ASA for above Hgb 9.5 prior to d/c but did recevie IVF while inpatient for +orthostatic dehydration and elevated Cr on admit (9) Swelling of lymph node: L neck -- been present on/off per patient for quite some time mobile, non-tender Neck US:There is a 1.9 x 1.5 x 1.2 cm hypoechoic nodule within the left lateral mid neck which corresponds the patient's palpable abnormality. This likely represents a pathologically enlarged lymph node. No significant fatty hilum. The echotexture is slightly heterogeneous. There is a similar-appearing hypoechoic cervical lymph node measuring 1.4 x 1.2 x 0.8 cm. There is a left jugulodigastric lymph node measuring 2.7 x 1.7 x 1.2 cm. No right cervical lymphadenopathy. Concerning for malignancy. Discussed with patient and (as well as son) regarding findings and will plan to arrange for outpatient FNA. Discussed with textile technologist as well as CM to assist with following up on this Dispo-dc to home Total Time Total Time Spent Total Time Spent (In Minutes): 60 Discharge Plan Discharge Items Patient Disposition: Home - Self-Care Reason For Visit: STROKE Discharge Diagnosis: Rule out stroke, TIA Goals: You have been hospitalized for an acute medical problem. During your stay at [facility], we have made an effort to correct the problem that brought you to the hospital while keeping you as comfortable as possible. Medications were used to bring your condition under control and your discharge instructions will include directions for any medications you should take after leaving the hospital. Please make sure you see your Primary Care Provider as part of your follow up plan. Activity: Resume your previous activity Non-emergency contact: Primary Care Provider Call non-emergency contact if: you have any medication questions, your symptoms worsen and you have a fever Follow-up/Referrals: Jason Bay PA-C [Primary Care Provider] - (PLEASE CALL YOUR PRIMARY CARE PROVIDER TO SCHEDULE A DISCHARGE FOLLOW-UP APPOINTMENT WITHIN 7-10 DAYS.) Ty Alvares MD [Surgeon] - (2 weeks, visual distrubances) Diet: Heart Healthy Addtl Attending Provider Instructions: You have been hospitalized for possible stroke. Extensive workup including CT of head/neck as well as two brain MRIs were completed which were negative for acute stroke. Your blood pressure was elevated and heart rates at times could be fast and given your history of atrial fibrillation, you are to continue on metoprolol tartrate 25mg by mouth twice daily and monitor your blood pressures at home and follow up with your PCP for further titrations/management. You should continue on aspirin 81mg daily and as discussed, should limit the meloxicam as used for joint pain while on Xarelto as well as this can increase your risk of bleeding. An ultrasound of your heart was done which did not show any evidence of shunt. Of note, I did feel a lymph node on your left neck, which you stated to be present for some time. An ultrasound was done as this was not commented on on the CT of the head and neck (although that's not what this study is designed for) and an ultrasound was pursued. This did show several enlarged lymph nodes that would be concerning to be pathological and am recommending a fine needle aspiration to have further evaluation and rule out malignancy. This can be done on an outpatient basis as these are not done over the weekend, and as discussed, will have our nurse navigator call you on Wednesday to see about getting you scheduled as soon as possible. Based on results, your PCP can make referrals as needed. Given visual changes, inflammatory markers where checked to rule out giant cell arteritis and these were not significantly elevated and this has been ruled out. You are to follow up with ophthalmology as an outpatient for further dilated eye exam to see about any other issues. You can follow up locally in [place]oser to home, if wanted for ease of transportation. Please follow up with your PCP in the next 7-10 days to monitor your progress. You should return to the emergency department with any recurrence of symptoms, fever, chills, chest pain, shortness of breath, or for any other symptoms concerning for you. It has been a pleasure being a part of the medical team providing for you while you have been in the hospital. Take care! Pending Studies at Discharge: No Stand-Alone Forms: Medications to Prevent Stroke, My [facility] ControlScan, Smoking Cessation Medications and DC Order Prescriptions: New aspirin 81 mg Tablet,Delayed Release (Dr/Ec) 81 mg PO QAM Qty: 30 RF: 0 magnesium oxide 400 mg (241.3 mg magnesium) Tablet 400 mg PO QAM Qty: 30 RF: 0 metoprolol tartrate 25 mg Tablet 25 mg PO BID Qty: 60 RF: 0 Continued meclizine 25 mg tablet 25 mg PO TID PRN (Reason: vertigo) Qty: 90 RF: 1 esomeprazole magnesium 40 mg capsule,delayed release(DR/EC) 40 mg PO QAM RF: 0 loratadine 10 mg tablet 10 mg PO QAM RF: 0 ferrous sulfate [iron] 325 mg (65 mg iron) Tablet 325 mg PO QAM RF: 0 guaifenesin [Mucinex] 600 mg Tablet Extended Release 12hr 600 mg PO QAM PRN (Reason: Congestion) RF: 0 atorvastatin 20 mg tablet 20 mg PO HS Qty: 30 RF: 0 celecoxib 200 mg capsule 200 mg PO QAM RF: 0 tramadol 50 mg tablet 50 mg PO Q6H PRN (Reason: Pain) RF: 0 gabapentin 300 mg capsule 300 mg PO HS RF: 0 lisinopril 2.5 mg tablet 2.5 mg PO QAM RF: 0 acetaminophen 500 mg Capsule 1,000 mg PO BID RF: 0 vitamin B complex Capsule 1 cap PO QAM RF: 0 Xarelto 20 mg tablet 20 mg PO QAM RF: 0 Discharge Orders: Discharge Order (Routine); Ordered 07/05/21 Ordered By: Yu Martinez Admission Data Admit Date/Time: 07/04/21 15:41 Attending Provider: Shy Saucedo Admit Provider: Yoseph Garcia Primary Care Provider: Jason Bay Other Providers: Yoseph Garcia ; Luca Sanders Other Interventions: Discharge Summary Assessment (RN) Last Done: 07/05/21 14:16 Supervising Physician Co-Signing Physician Notes PA Supervision Note: I personally saw and examined the patient. I verified all contreras points and agree with RAHEEL Martinez with the following exceptions and/or additions: This patient is an 80-year-old male who presented with an episode of intermittent flashing lights and possible slurred speech and left upper extremity weakness. His work-up for stroke and brain lesions was negative. EEG without seizure activity however does not completely rule out seizure activity. He is feeling very well and has had no recurrence of symptoms. No abnormalities otherwise. O- Vitals reviewed Gen: AAOx3, NAD HEENT: Anicteric sclerae, EOMI, palpable enlarged left anterior cervical lymph nodes, nontender no overlying erythema CV: Irregularly irregular, normal rate, no mgr nl S1S2 Pulm: CTAB no wcr Abd: +BS soft NT ND no masses or hernias Ext: No edema Skin: No rashes, warm/dry Neuro: Full strength throughout, PERRLA, EOM A/I-82-wybm-old male here with visual disturbance as above. Ruled out stroke, vasculitis, TIA. Ruled out intracranial lesions. Cannot completely rule out EEG but neuro does not recommend starting anticon vulsants Recommend following up with ophthalmology after discharge to look for retinal issues Advised to return to hospital if has recurrence Coding Level of Care Code D/C DAY MANAGEMENT >30 MINS Diagnoses Stroke-like symptom R29.90 HTN (hypertension) I10 Hypomagnesemia E83.42 Paroxysmal A-fib I48.0 BPPV (benign paroxysmal positional vertigo) H81.10 GERD (gastroesophageal reflux disease) K21.9 Diastolic CHF, chronic I50.32 Anemia D64.9 Swelling of lymph node R59.9
[2021-07-05] MEDS ORDERED: STROKE PATIENT DISCHARGE STA (13:50)
--- NOTE | 2021-07-05 14:18 | Pharmacy Report ---
Pharmacist Stroke Counseling - Date of Service July 05, 2021 - Scope: Pharmacy has been consulted to provide medication discharge counseling for this patient admitted with [ischemic stroke] [hemorrhagic stroke] [transient ischemic attack] as per the Pharmacist Discharge Counseling for Stroke Patients Protoc . - Medications on Discharge: Home Medications Medication Instructions Recorded Confirmed esomeprazole magnesium 40 mg 40 mg PO QAM 10/31/18 07/03/21 capsule,delayed release loratadine 10 mg tablet 10 mg PO QAM 10/31/18 07/03/21 ferrous sulfate 325 mg (65 mg 325 mg PO QAM 12/03/18 07/03/21 iron) tablet (iron) guaifenesin 600 mg tablet, 600 mg PO QAM PRN 12/03/18 07/03/21 extended release 12 hr (Mucinex) acetaminophen 500 mg capsule 1,000 mg PO BID 07/03/21 07/03/21 celecoxib 200 mg capsule 200 mg PO QAM 07/03/21 07/03/21 gabapentin 300 mg capsule 300 mg PO HS 07/03/21 07/03/21 lisinopril 2.5 mg tablet 2.5 mg PO QAM 07/03/21 07/03/21 rivaroxaban 20 mg tablet (Xarelto) 20 mg PO QAM 07/03/21 07/03/21 tramadol 50 mg tablet 50 mg PO Q6H PRN 07/03/21 07/03/21 vitamin B complex 1 cap PO QAM 07/03/21 07/03/21 New Rx's Medication Instructions Recorded atorvastatin 20 mg tablet 20 mg PO HS #30 tab 12/05/18 meclizine 25 mg tablet 25 mg PO TID PRN #90 tab 01/04/19 aspirin 81 mg tablet,delayed 81 mg PO QAM #30 tab 07/05/21 release magnesium oxide 400 mg (241.3 mg 400 mg PO QAM #30 tab 07/05/21 magnesium) tablet metoprolol tartrate 25 mg tablet 25 mg PO BID #60 tab 07/05/21 - Action: The above medications, specifically ones for stroke treatment/prophylaxis, have been reviewed in detail with the patient and/or patient screening representative(s) prior to discharge. This includes indication, common adverse reactions, drug inter actions, and medication administration. Medication counseling has been employed using the teach-back method to ensure understanding. - Outcome: The patient and/or patient screening representative(s) have demonstrated understanding of the medications. Additional comments: []Spoke with Mr. Mena regarding new medications added after discharge. Went over them with him and he did not have any questions. Thank you for allowing pharmacy to be involved in the care of this patient. Please call [phone] with any additional questions
== END 2021-07-05 15:45 | disposition home or self-care (01) | DRG 69 ==
LOC: ED 13:27 → 2N 13:27 → SUATTDRO 15:50 → 2N 20:01